=== PATIENT | male | born 1945 | race Caucasian/White ===

== ENCOUNTER 2022-03-07 07:10 | Emergency (ER) | payer OTHER ==
--- OUTSIDE RECORDS SUMMARY | 2022-03-07 07:14 | XMS REPORT | Continuity of Care Document ---
:1945 Author Organization [facility] t Address [address] [place] [address] Care Team Providers Name Role Phone [phone] Primary Care Physician Unavailable Aranza Schroeder Attending Clinician Unavailable Elvis Valderrama MD Attending Clinician Con BLANCAS, Nnamdi Attending Clinician Zakia ORTIZ, Lashae Attending Clinician Unavailable Kamran BLANCAS, Davy Berry Attending Clinician Mark Moreira MD Attending Clinician Isela Rand Attending Clinician [phone] Nadia Andujar MA Attending Clinician Unavailable Shannon De Jesus MA Attending Clinician Unavailable Salma Mojica MD Attending Clinician Ever Sepulveda MD Attending Clinician Danuta Ty MA Attending Clinician Unavailable JERE RODRIGUEZ Attending Clinician Unavailable Lou Bonner Attending Clinician Tyrone Culver Attending Clinician Any Keys MA Attending Clinician Unavailable Nadine Chaves MA Attending Clinician Unavailable Jerri Kwok MA Attending Clinician Unavailable Shannon Bradford MA Attending Clinician Unavailable Prasanth BLANCAS, Munir Gaxiolai Attending Clinician Ramone Peralta MA Attending Clinician Unavailable ISABEL MONTGOMERY Attending Clinician Unavailable DAVY ANDREW Admitting Clinician Unavailable Payers Payer Name Policy Type Policy Number Effective Date Expiration Date Venkat rojas GENERIC [id number] 2018 00:00:00 MEDICARE PART A [id number] 2010 AND B 00:00:00 MEDICARE MB [id number] 2012 [facility] NOVITAS 00:00:00 [facility] SENTINEL C1 [id number] [facility] SECURITY LIFE [facility] SENTINEL C1 [id number] [facility] SECURITY LIFE [facility] MEDICARE MB [id number] 2012 [facility] NOVITAS 00:00:00 [facility] Problems Condition Condition Condition Status Onset Resolution Last Treating Co mments Source Name Details Category Date Date Treatment Clinician Date Persistent Persistent Disease Active 2021-03 M ethodi atrial atrial 1 st fibrillati fibrillati 00:00: Ho spita on on 00 l ILD ILD Disease Active [facility] (interstit (interstit 8-03 st ial lung ial lung 00:00: Hospit a disease) disease) 00 l Dyspnea Dyspnea Disease Active [facility] 7-13 st 00:00: Hospita 00 l MARCI MARCI Disease Active Methodi (obstructi (obstructi [address] ve sleep ve sleep 00:00: Hospit a apnea) apnea) 00 l RLS RLS Disease Active [facility] (restless (restless [address] st legs legs 00:00: Hospita syndrome) syndrome) 00 l Chronic Stage 3 Problem Common kidney chronic [facility] disease kidney - [facility] stage 3 disease, St (disorder) unspecifie Lavelle kes d whether Medical stage 3a Center or 3b CKD [id number] Hypothyroi Problem Com mon dism, Spirit unspecifie - [facility] d type [facility] [id number] 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 Family History Family Member Diagnosis Comments Start Date Stop Date Source Natural father Heart disease [facility] Natural mother Heart disease [facility] Social History Social Habit Start Date Stop Date Quantity Comments Source History [facility] Alcohol Std Drinks Medica l Center History [facility] Alcohol Binge Medical [facility] History of tobacco Chews Tobacco [facility] use [facility] Alcohol intake 2022-01-27 2022-01-27 Current drinker [facility] 00:00:00 00:00:00 of alcohol Hospital (finding) Alcohol Comment 2022-01-08 2022-01-08 once a week Methodis t 00:00:00 00:00:00 Hospital History SDOH 2018-05-28 2018-05-[address] [facility] Alcohol Frequency 00:00:00 00:00:00 [facility] Tobacco use and 2018-05-27 2018-05-27 Never used [facility] kes exposure 00:00:00 00:00:00 [facility] Sex [birth year] At [birth year] [facility] 00:00:00 00:00:00 Hospital Smoking Status Start Date Stop Date Source Never smoked tobacco [facility] Medications Ordered Filled Start Stop Current Ordering Indication Dosage Frequency Signature Comments Components Source Medication Medication Date Date Medication? Clinician (SIG) Name Name GARLIC OIL 2021-03 Yes QD Take by Meth asia ORAL 2-[address] 13:45: daily. Hospita 19 l pantoprazol 2021-03 No 40mg QD Take 1 Met hodi e 03-12 tablet (40 st (PROTONIX) 00:00: 00:00 mg total) H ospita 40 MG EC 00 :00 by mouth l tablet daily for 30 days. sucralfate 2021-03 No 1g Q.25D Take 1 Met hodi (CARAFATE) 03-11 tablet (1 st 1 gram 00:00: 00:00 g total) Hospit a tablet 00 :00 by mouth 4 l (four) times a day before meals and nightly for 30 days. ascorbic 2021-03- No QD Take by Metho di acid 03-[address] (VITAMIN C 09:22: 00:00 daily. Hosp isabella ORAL) 06 :00 l rivaroxaban Yes 20mg QD Take 1 Meth saia (Xarelto) 7-21 tablet (20 st 20 mg 00:00: mg total) Hospita tablet 00 by mouth l daily. rivaroxaban 2021- No 20mg QD Take 1 Met hodi (Xarelto) 711 -18 tablet (20 st 20 mg 00:00: 00:00 mg total) Hospit a tablet 00 :00 by mouth l daily. rivaroxaban 2021- No 20mg QD Take 1 Met hodi (Xarelto) 4-01 10- tablet (20 st 20 mg 00:00: 00:00 mg total) Hospit a tablet 00 :00 by mouth l daily. rivaroxaban No 20mg QD Take 1 Met hodi (Xarelto) 22 -26 tablet (20 st 20 mg 00:00: 00:00 mg total) Hospit a tablet 00 :00 by mouth l daily for 180 days. amIODarone Yes 200mg QD Take 1 Meth asia (PACERONE) 4-[address] 200 MG 00:00: (200 mg Hospita tablet 00 total) by l mouth daily. fenofibrate Yes 160mg QD Take 160 M ethodi (LOFIBRA) 4-[address] 160 MG 00:00: mouth Hospita tablet 00 daily. l levothyroxi Yes 50ug QD Take 50 Met hodi ne 4-[address] (SYNTHROID) 00:00: mouth Hospi ta 50 mcg 00 daily. l tablet diltiazem 2021- No 1{capsu QD Take 1 Me thodi CD 3-18 01-27 le} capsule by st (CardIZEM 00:00: 00:00 mouth Hospit a CD) 180 MG 00 :00 daily. l 24 hr capsule Levothyroxi Levothyroxi Yes Aranza 1 tablet Common ne Sodium ne Sodium 4-18 [place] on an Spi rit 00:00: empty - [facility] [address] [facility] Fenofibrate Fenofibrate No 1{table QD Fenofibrat 160 MG 160 MG t_with_ e 160 MG food} Cartia XT Cartia XT No QD Cartia XT 180 MG 180 MG 180 MG Melatonin 5 Melatonin 5 No 1{table QD Melatonin MG MG t_in_th 5 MG e_eveni ng} Vitamin C Vitamin C No BID Vitamin C 500 MG 500 MG 500 MG Garlic Garlic No Garlic Levothyroxi Levothyroxi No QD Levothyrox ne Sodium ne Sodium ine Sodium 50 MCG 50 MCG 50 MCG Amiodarone Amiodarone No 1{table QD Amiodarone HCl 200 MG HCl 200 MG t} HCl 200 MG Fish Oil Fish Oil No Fish Oil Rivaroxaban Rivaroxaban No 1{table QD Rivaroxaba 10 MG 10 MG t} n 10 MG Cartia XT Cartia XT No QD Cartia XT 180 MG 180 MG 180 MG Garlic Garlic No Garlic Vitamin C Vitamin C No BID Vitamin C 500 MG 500 MG 500 MG Fenofibrate Fenofibrate No 1{table QD Fenofibrat 160 MG 160 MG t_with_ e 160 MG food} Melatonin 5 Melatonin 5 No 1{table QD Melatonin MG MG t_in_th 5 MG e_eveni ng} Levothyroxi Levothyroxi No QD Levothyrox ne Sodium ne Sodium ine Sodium 50 MCG 50 MCG 50 MCG Fish Oil Fish Oil No Fish Oil Amiodarone Amiodarone No 1{table QD Amiodarone HCl 200 MG HCl 200 MG t} HCl 200 MG Rivaroxaban Rivaroxaban No 1{table QD Rivaroxaba 10 MG 10 MG t} n 10 MG Cartia XT Cartia XT No QD Cartia XT 180 MG 180 MG 180 MG Garlic Garlic No Garlic Vitamin C Vitamin C No BID Vitamin C 500 MG 500 MG 500 MG Fenofibrate Fenofibrate No 1{table QD Fenofibrat 160 MG 160 MG t_with_ e 160 MG food} Melatonin 5 Melatonin 5 No 1{table QD Melatonin MG MG t_in_th 5 MG e_eveni ng} Levothyroxi Levothyroxi No QD Levothyrox ne Sodium ne Sodium ine Sodium 50 MCG 50 MCG 50 MCG Fish Oil Fish Oil No Fish Oil Amiodarone Amiodarone No 1{table QD Amiodarone HCl 200 MG HCl 200 MG t} HCl 200 MG Cartia XT Cartia XT No QD Cartia XT 180 MG 180 MG 180 MG Garlic Garlic No Garlic Fenofibrate Fenofibrate No 1{table QD Fenofibrat 160 MG 160 MG t_with_ e 160 MG food} Vitamin C Vitamin C No BID Vitamin C 500 MG 500 MG 500 MG Melatonin 5 Melatonin 5 No 1{table QD Melatonin MG MG t_in_th 5 MG e_eveni ng} Amiodarone Amiodarone No 1{table QD Amiodarone HCl 200 MG HCl 200 MG t} HCl 200 MG Xarelto 20 Xarelto 20 No 1{table QD Xarelto 20 MG MG t_with_ MG food} Levothyroxi Levothyroxi No QD Levothyrox ne Sodium ne Sodium ine Sodium 50 MCG 50 MCG 50 MCG Rivaroxaban Rivaroxaban No 1{table QD Rivaroxaba 10 MG 10 MG t} n 10 MG Fish Oil Fish Oil No Fish Oil Cartia XT Cartia XT No QD Cartia XT 180 MG 180 MG 180 MG Garlic Garlic No Garlic Fenofibrate Fenofibrate No 1{table QD Fenofibrat 160 MG 160 MG t_with_ e 160 MG food} Vitamin C Vitamin C No BID Vitamin C 500 MG 500 MG 500 MG Melatonin 5 Melatonin 5 No 1{table QD Melatonin MG MG t_in_th 5 MG e_eveni ng} Amiodarone Amiodarone No 1{table QD Amiodarone HCl 200 MG HCl 200 MG t} HCl 200 MG Xarelto 20 Xarelto 20 No 1{table QD Xarelto 20 MG MG t_with_ MG food} Levothyroxi Levothyroxi No QD Levothyrox ne Sodium ne Sodium ine Sodium 50 MCG 50 MCG 50 MCG Rivaroxaban Rivaroxaban No 1{table QD Rivaroxaba 10 MG 10 MG t} n 10 MG Fish Oil Fish Oil No Fish Oil Cartia XT Cartia XT No QD Cartia XT 180 MG 180 MG 180 MG Garlic Garlic No Garlic Fenofibrate Fenofibrate No 1{table QD Fenofibrat 160 MG 160 MG t_with_ e 160 MG food} Vitamin C Vitamin C No BID Vitamin C 500 MG 500 MG 500 MG Melatonin 5 Melatonin 5 No 1{table QD Melatonin MG MG t_in_th 5 MG e_eveni ng} Amiodarone Amiodarone No 1{table QD Amiodarone HCl 200 MG HCl 200 MG t} HCl 200 MG Xarelto 20 Xarelto 20 No 1{table QD Xarelto 20 MG MG t_with_ MG food} Levothyroxi Levothyroxi No QD Levothyrox ne Sodium ne Sodium ine Sodium 50 MCG 50 MCG 50 MCG Rivaroxaban Rivaroxaban No 1{table QD Rivaroxaba 10 MG 10 MG t} n 10 MG Fish Oil Fish Oil No Fish Oil Melatonin 5 Melatonin 5 No 1{table QD Melatonin MG MG t_in_th 5 MG e_eveni ng} Levothyroxi Levothyroxi No QD Levothyrox ne Sodium ne Sodium ine Sodium 50 MCG 50 MCG 50 MCG Rivaroxaban Rivaroxaban No 1{table QD Rivaroxaba 10 MG 10 MG t} n 10 MG Amiodarone Amiodarone No 1{table QD Amiodarone HCl 200 MG HCl 200 MG t} HCl 200 MG Garlic Garlic No Garlic Cartia XT Cartia XT No QD Cartia XT 180 MG 180 MG 180 MG Fish Oil Fish Oil No Fish Oil Xarelto 20 Xarelto 20 No 1{table QD Xarelto 20 MG MG t_with_ MG food} Vitamin C Vitamin C No BID Vitamin C 500 MG 500 MG 500 MG Fenofibrate Fenofibrate No 1{table QD Fenofibrat 160 MG 160 MG t_with_ e 160 MG food} Garlic Garlic No Garlic Xarelto 20 Xarelto 20 No 1{table QD Xarelto 20 MG MG t_with_ MG food} Fenofibrate Fenofibrate No 1{table QD Fenofibrat 160 MG 160 MG t_with_ e 160 MG food} Fish Oil Fish Oil No Fish Oil Levothyroxi Levothyroxi No QD Levothyrox ne Sodium ne Sodium ine Sodium 50 MCG 50 MCG 50 MCG Rivaroxaban Rivaroxaban No 1{table QD Rivaroxaba 10 MG 10 MG t} n 10 MG Vitamin C Vitamin C No BID Vitamin C 500 MG 500 MG 500 MG Melatonin 5 Melatonin 5 No 1{table QD Melatonin MG MG t_in_th 5 MG e_eveni ng} Garlic Garlic No Garlic Xarelto 20 Xarelto 20 No 1{table QD Xarelto 20 MG MG t_with_ MG food} Fenofibrate Fenofibrate No 1{table QD Fenofibrat 160 MG 160 MG t_with_ e 160 MG food} Fish Oil Fish Oil No Fish Oil Levothyroxi Levothyroxi No QD Levothyrox ne Sodium ne Sodium ine Sodium 50 MCG 50 MCG 50 MCG Rivaroxaban Rivaroxaban No 1{table QD Rivaroxaba 10 MG 10 MG t} n 10 MG Vitamin C Vitamin C No BID Vitamin C 500 MG 500 MG 500 MG Melatonin 5 Melatonin 5 No 1{table QD Melatonin MG MG t_in_th 5 MG e_eveni ng} Fenofibrate Fenofibrate No QD Fenofibrat 160 MG 160 MG e 160 MG Garlic Garlic No Garlic Levothyroxi Levothyroxi No QD Levothyrox ne Sodium ne Sodium ine Sodium 50 MCG 50 MCG 50 MCG Fish Oil Fish Oil No Fish Oil Amiodarone Amiodarone No QD Amiodarone HCl 200 MG HCl 200 MG HCl 200 MG Vitamin C Vitamin C No BID Vitamin C 500 MG 500 MG 500 MG Cartia XT Cartia XT No QD Cartia XT 180 MG 180 MG 180 MG Melatonin 5 Melatonin 5 No 1{table QD Melatonin MG MG t_in_th 5 MG e_eveni ng} Melatonin 5 Melatonin 5 No 1{table QD Melatonin MG MG t_in_th 5 MG e_eveni ng} Levothyroxi Levothyroxi No QD Levothyrox ne Sodium ne Sodium ine Sodium 50 MCG 50 MCG 50 MCG Cartia XT Cartia XT No QD Cartia XT 180 MG 180 MG 180 MG Amiodarone Amiodarone No QD Amiodarone HCl 200 MG HCl 200 MG HCl 200 MG Fish Oil Fish Oil No Fish Oil Vitamin C Vitamin C No BID Vitamin C 500 MG 500 MG 500 MG Garlic Garlic No Garlic Fenofibrate Fenofibrate No QD Fenofibrat 160 MG 160 MG e 160 MG Cartia XT Cartia XT No QD Cartia XT 180 MG 180 MG 180 MG Fish Oil Fish Oil No Fish Oil Melatonin 5 Melatonin 5 No 1{table QD Melatonin MG MG t_in_th 5 MG e_eveni ng} Levothyroxi Levothyroxi No QD Levothyrox ne Sodium ne Sodium ine Sodium 50 MCG 50 MCG 50 MCG Vitamin C Vitamin C No BID Vitamin C 500 MG 500 MG 500 MG Fenofibrate Fenofibrate No 1{table QD Fenofibrat 160 MG 160 MG t_with_ e 160 MG food} Amiodarone Amiodarone No 1{table QD Amiodarone HCl 200 MG HCl 200 MG t} HCl 200 MG Garlic Garlic No Garlic Immunizations Ordered Immunization Filled Immunization Date Status Commen ts Source Name Name FLUZONE HIGH-DOSE PF 2021-12-02 Completed [facility] 00:00:00 [facility] Moderna COVID-19 Moderna COVID-19 2020-12-31 Completed [facility] - Vaccine Vaccine 16:14:00 [facility] Moderna COVID-19 Moderna COVID-19 2020-12-31 Completed [facility] - Vaccine Vaccine 16:14:00 [facility] Moderna COVID-19 Moderna COVID-19 2020-12-31 Completed [facility] - Vaccine Vaccine 16:14:00 [facility] Moderna COVID-19 Moderna COVID-19 2020-12-31 Completed [facility] - Vaccine Vaccine 16:14:00 [facility] Moderna COVID-19 Moderna COVID-19 2020-12-31 Completed [facility] - Vaccine Vaccine 16:14:00 [facility] Moderna COVID-19 Moderna COVID-19 2020-12-31 Completed [facility] - Vaccine Vaccine 16:14:00 [facility] Moderna COVID-19 Moderna COVID-19 2020-12-31 Completed [facility] - Vaccine Vaccine 16:14:00 [facility] Moderna COVID-19 Moderna COVID-19 2020-12-31 Completed [facility] - Vaccine Vaccine 16:14:00 [facility] Moderna COVID-19 Moderna COVID-19 2020-12-31 Completed [facility] - Vaccine Vaccine 16:14:00 [facility] Moderna COVID-19 Moderna COVID-19 2020-12-31 Completed [facility] - Vaccine Vaccine 16:14:00 [facility] FLUZONE HIGH DOSE FLUZONE HIGH DOSE 2020-11-09 Completed [facility] - OVER 65 OVER 65 15:50:00 [facility] FLUZONE HIGH DOSE FLUZONE HIGH DOSE 2020-11-09 Completed [facility] - OVER 65 OVER 65 15:50:00 [facility] FLUZONE HIGH DOSE FLUZONE HIGH DOSE 2020-11-09 Completed [facility] - OVER 65 OVER 65 15:50:00 [facility] FLUZONE HIGH DOSE FLUZONE HIGH DOSE 2020-11-09 Completed [facility] - OVER 65 OVER 65 15:50:00 [facility] FLUZONE HIGH DOSE FLUZONE HIGH DOSE 2020-11-09 Completed [facility] - OVER 65 OVER 65 15:50:00 [facility] FLUZONE HIGH DOSE FLUZONE HIGH DOSE 2020-11-09 Completed [facility] - OVER 65 OVER 65 15:50:00 [facility] FLUZONE HIGH DOSE FLUZONE HIGH DOSE 2020-11-09 Completed [facility] - OVER 65 OVER 65 15:50:00 [facility] FLUZONE HIGH DOSE FLUZONE HIGH DOSE 2020-11-09 Completed [facility] - OVER 65 OVER 65 15:50:00 [facility] FLUZONE HIGH DOSE FLUZONE HIGH DOSE 2020-11-09 Completed [facility] - OVER 65 OVER 65 15:50:00 [facility] FLUZONE HIGH DOSE FLUZONE HIGH DOSE 2020-11-09 Completed [facility] - OVER 65 OVER 65 15:50:00 [facility] Pneumovax (PPSV23) Pneumovax (PPSV23) 2019-12-07 Completed [facility] - 19:51:00 [facility] Pneumovax (PPSV23) Pneumovax (PPSV23) 2019-12-07 Completed [facility] - 19:51:00 [facility] Pneumovax (PPSV23) Pneumovax (PPSV23) 2019-12-07 Completed [facility] - 19:51:00 [facility] Pneumovax (PPSV23) Pneumovax (PPSV23) 2019-12-07 Completed [facility] - 19:51:00 [facility] Pneumovax (PPSV23) Pneumovax (PPSV23) 2019-12-07 Completed [facility] - 19:51:00 [facility] Pneumovax (PPSV23) Pneumovax (PPSV23) 2019-12-07 Completed [facility] - 19:51:00 [facility] Pneumovax (PPSV23) Pneumovax (PPSV23) 2019-12-07 Completed [facility] - 19:51:00 [facility] Pneumovax (PPSV23) Pneumovax (PPSV23) 2019-12-07 Completed [facility] - 19:51:00 [facility] Pneumovax (PPSV23) Pneumovax (PPSV23) 2019-12-07 Completed [facility] - 19:51:00 [facility] Pneumovax (PPSV23) Pneumovax (PPSV23) 2019-12-07 Completed [facility] - 19:51:00 [facility] Pneumovax (PPSV23) Pneumovax (PPSV23) 2019-12-07 Completed [facility] - 19:51:00 [facility] Pneumovax (PPSV23) Pneumovax (PPSV23) 2019-12-07 Completed [facility] - 19:51:00 [facility] FLUZONE HIGH DOSE FLUZONE HIGH DOSE 2019-12-07 Completed [facility] - OVER 65 OVER 65 19:50:00 [facility] FLUZONE HIGH DOSE FLUZONE HIGH DOSE 2019-12-07 Completed [facility] - OVER 65 OVER 65 19:50:00 [facility] FLUZONE HIGH DOSE FLUZONE HIGH DOSE 2019-12-07 Completed [facility] - OVER 65 OVER 65 19:50:00 [facility] FLUZONE HIGH DOSE FLUZONE HIGH DOSE 2019-12-07 Completed [facility] - OVER 65 OVER 65 19:50:00 [facility] FLUZONE HIGH DOSE FLUZONE HIGH DOSE 2019-12-07 Completed [facility] - OVER 65 OVER 65 19:50:00 [facility] FLUZONE HIGH DOSE FLUZONE HIGH DOSE 2019-12-07 Completed [facility] - OVER 65 OVER 65 19:50:00 [facility] FLUZONE HIGH DOSE FLUZONE HIGH DOSE 2019-12-07 Completed [facility] - OVER 65 OVER 65 19:50:00 [facility] FLUZONE HIGH DOSE FLUZONE HIGH DOSE 2019-12-07 Completed [facility] - OVER 65 OVER 65 19:50:00 [facility] FLUZONE HIGH DOSE FLUZONE HIGH DOSE 2019-12-07 Completed [facility] - OVER 65 OVER 65 19:50:00 [facility] FLUZONE HIGH DOSE FLUZONE HIGH DOSE 2019-12-07 Completed [facility] - OVER 65 OVER 65 19:50:00 [facility] FLUZONE HIGH DOSE FLUZONE HIGH DOSE 2019-12-07 Completed [facility] - OVER 65 OVER 65 19:50:00 [facility] FLUZONE HIGH DOSE FLUZONE HIGH DOSE 2019-12-07 Completed [facility] - OVER 65 OVER 65 19:50:00 [facility] Tdap 2018-05-27 Completed [facility] 00:00:00 [facility] Prevnar 13 Prevnar 13 2017-11-02 Completed [facility] - -Pneumonia Vaccine -Pneumonia Vaccine 14:37:00 [facility] Prevnar 13 Prevnar 13 2017-11-02 Completed [facility] - -Pneumonia Vaccine -Pneumonia Vaccine 14:37:00 [facility] Prevnar 13 Prevnar 13 2017-11-02 Completed [facility] - -Pneumonia Vaccine -Pneumonia Vaccine 14:37:00 [facility] Prevnar 13 Prevnar 13 2017-11-02 Completed [facility] - -Pneumonia Vaccine -Pneumonia Vaccine 14:37:00 [facility] Prevnar 13 Prevnar 13 2017-11-02 Completed [facility] - -Pneumonia Vaccine -Pneumonia Vaccine 14:37:00 [facility] Prevnar 13 Prevnar 13 2017-11-02 Completed [facility] - -Pneumonia Vaccine -Pneumonia Vaccine 14:37:00 [facility] Prevnar 13 Prevnar 13 2017-11-02 Completed [facility] - -Pneumonia Vaccine -Pneumonia Vaccine 14:37:00 [facility] Prevnar 13 Prevnar 13 2017-11-02 Completed [facility] - -Pneumonia Vaccine -Pneumonia Vaccine 14:37:00 [facility] Prevnar 13 Prevnar 13 2017-11-02 Completed [facility] - -Pneumonia Vaccine -Pneumonia Vaccine 14:37:00 [facility] Prevnar 13 Prevnar 13 2017-11-02 Completed [facility] - -Pneumonia Vaccine -Pneumonia Vaccine 14:37:00 [facility] Prevnar 13 Prevnar 13 2017-11-02 Completed [facility] - -Pneumonia Vaccine -Pneumonia Vaccine 14:37:00 [facility] Prevnar 13 Prevnar 13 2017-11-02 Completed [facility] - -Pneumonia Vaccine -Pneumonia Vaccine 14:37:00 [facility] Prevnar 13 Prevnar 13 2017-11-02 Completed [facility] - -Pneumonia Vaccine -Pneumonia Vaccine 00:00:00 [facility] Vital Signs Vital Name Observation Time Observation Value Comments Source height 2022-01-14 11:00:00 69.50 [in_i] Common [facility] weight 2022-01-14 11:00:00 256.4 [lb_av] [facility] temperature 2022-01-14 11:00:00 97.3 [degF] [facility] bmi 2022-01-14 11:00:00 37.32 kg/m2 [facility] oximetry 2022-01-14 11:00:00 98 % [facility] respiratory rate 2022-01-14 11:00:00 16 /min Comm on [facility] blood pressure 2022-01-14 11:00:00 138 mm[Hg] [facility] - systolic [facility] blood pressure 2022-01-14 11:00:00 77 mm[Hg] Common [facility] diastolic [facility] height 2021-10-28 11:40:00 69.50 [in_i] [facility] weight 2021-10-28 11:40:00 264.6 [lb_av] [facility] temperature 2021-10-28 11:40:00 98.2 [degF] [facility] bmi 2021-10-28 11:40:00 38.51 kg/m2 [facility] oximetry 2021-10-28 11:40:00 97 % [facility] respiratory rate 2021-10-28 11:40:00 16 /min Comm on [facility] blood pressure 2021-10-28 11:40:00 139 mm[Hg] Common [facility] - systolic [facility] blood pressure 2021-10-28 11:40:00 68 mm[Hg] [facility] - diastolic [facility] height 2021-09-26 15:00:00 69.50 [in_i] [facility] - [facility] weight 2021-09-26 15:00:00 268.6 [lb_av] Common [facility] temperature 2021-09-26 15:00:00 97.3 [degF] [facility] - [facility] bmi 2021-09-26 15:00:00 39.09 kg/m2 [facility] oximetry 2021-09-26 15:00:00 96 % [facility] respiratory rate 2021-09-26 15:00:00 18 /min Comm on [facility] blood pressure 2021-09-26 15:00:00 135 mm[Hg] Common [facility] - systolic [facility] blood pressure 2021-09-26 15:00:00 65 mm[Hg] [facility] - diastolic [facility] height 2021-07-29 16:00:00 69.50 [in_i] [facility] weight 2021-07-29 16:00:00 267.4 [lb_av] [facility] temperature 2021-07-29 16:00:00 98.6 [degF] [facility] - [facility] bmi 2021-07-29 16:00:00 38.92 kg/m2 [facility] oximetry 2021-07-29 16:00:00 97 % [facility] respiratory rate 2021-07-29 16:00:00 18 /min Comm on [facility] blood pressure 2021-07-29 16:00:00 140 mm[Hg] [facility] - systolic [facility] blood pressure 2021-07-29 16:00:00 70 mm[Hg] [facility] - diastolic [facility] height 2021-06-26 15:20:00 69.50 [in_i] [facility] - [facility] weight 2021-06-26 15:20:00 268 [lb_av] Common [facility] temperature 2021-06-26 15:20:00 97.5 [degF] Common [facility] bmi 2021-06-26 15:20:00 39.01 kg/m2 Common [facility] oximetry 2021-06-26 15:20:00 98 % Common [facility] respiratory rate 2021-06-26 15:20:00 18 /min Comm on [facility] blood pressure 2021-06-26 15:20:00 138 mm[Hg] Common [facility] - systolic [facility] blood pressure 2021-06-26 15:20:00 82 mm[Hg] Common [facility] - diastolic [facility] height 2020-11-07 15:20:00 69.50 [in_i] Common [facility] weight 2020-11-07 15:20:00 264 [lb_av] Common [facility] temperature 2020-11-07 15:20:00 97.8 [degF] Common [facility] bmi 2020-11-07 15:20:00 38.42 kg/m2 [facility] oximetry 2020-11-07 15:20:00 98 % [facility] respiratory rate 2020-11-07 15:20:00 21 /min [facility] blood pressure 2020-11-07 15:20:00 108 mm[Hg] [facility] blood pressure 2020-11-07 15:20:00 68 mm[Hg] [facility] - diastolic [facility] WEIGHT 2019-10-06 13:13:50 118.8 kg Systolic blood 2022-02-17 19:42:00 132 mm[Hg] [facility] pressure Diastolic blood 2022-02-17 19:42:00 81 mm[Hg] Metho dist [facility] pressure Heart rate 2022-02-17 19:42:00 77 /min [facility] Body temperature 2022-02-17 19:42:00 36.28 Gayatri [facility] Body height 2022-02-17 19:42:00 177.8 cm [facility] Body weight 2022-02-17 19:42:00 116.665 kg [facility] BMI 2022-02-17 19:42:00 36.90 kg/m2 [facility] Oxygen saturation in 2022-02-17 19:42:00 98 /min [facility] Arterial blood by Pulse oximetry Respiratory rate 2022-01-09 13:10:00 18 /min [facility] Procedures Procedure Date / Time Performing Clinician Source Performed CT ABDOMEN PELVIS WO 2022-02-10 17:53:48 Elvis Valderrama [facility] CONTRAST ECG 12-LEAD 2022-01-27 17:54:29 Nnamdi Andujar [facility] spital BASIC METABOLIC PANEL 2022-01-09 12:28:00 [facility] MAGNESIUM LEVEL 2022-01-09 12:28:00 Nayely Pickens [facility] Tajdin ESTIMATED GFR 2022-01-09 12:28:00 Nnamdi Andujar [facility] spital CBC WITH PLATELET AND 2022-01-09 08:45:00 Con [facility] DIFFERENTIAL ECG 12-LEAD 2022-01-08 19:33:23 Nnamdi Andujar [facility] EP COMPLETE EP STUDY W 2022-01-08 18:56:29 Nnamdi Andujar [facility] ABLATION PULMONARY VEIN ACTIVATED CLOTTING TIME 2022-01-08 18:50:00 [facility] ACTIVATED CLOTTING TIME 2022-01-08 18:46:00 [facility] ACTIVATED CLOTTING TIME 2022-01-08 18:37:00 [facility] ACTIVATED CLOTTING TIME 2022-01-08 18:05:00 [facility] ACTIVATED CLOTTING TIME 2022-01-08 17:58:00 [facility] ACTIVATED CLOTTING TIME 2022-01-08 17:48:00 [facility] ACTIVATED CLOTTING TIME 2022-01-08 17:39:00 [facility] OH AN ELECTIVE 2022-01-08 16:44:00 [facility] ENDOTRACHEAL AIRWAY [place] ECG PRE/POST OP 2022-01-08 15:05:15 Dianelys Andujarca [facility] ABO AND RH CONFIRMATION 2022-01-08 14:25:00 [facility] BY PROTOCOL PROTHROMBIN TIME WITH INR 2022-01-03 18:47:00 [facility] TYPE AND SCREEN 2022-01-03 18:47:00 [facility] COMPREHENSIVE METABOLIC 2022-01-03 18:47:00 [facility] PANEL CBC WITH PLATELET AND 2022-01-03 18:47:00 [facility] DIFFERENTIAL ESTIMATED GFR 2022-01-03 18:47:00 [facility] 12-LEAD 2021-12-06 13:34:46 AdrSalma nur spital ECG 12-LEAD 2021-12-02 14:02:29 [facility] 12-LEAD 2021-11-06 15:40:06 [facility] X[facility] LUMBAR SPINE COMPLETE 2021-10-11 18:21:45 Tyrone Canchola [facility] W BENDING CT CHEST WO CONTRAST 2021-09-25 11:52:39 [facility] XR CHEST 2 VW 2021-09-18 16:13:18 [facility] US CAROTID DUPLEX 2021-08-26 19:56:50 Prasanth Munir [facility] BILATERAL [facility] ANGIOGRAM ABDOMINAL 2021-08-26 19:36:02 Lavelle [facility] AORTA AND BILATERAL ILIOFEMORAL RUNOFF W WO CONTRAST POC CREATININE 2021-08-26 19:10:00 Lavelle [facility] spital ESTIMATED GFR 2021-08-26 19:10:00 Elvis Valderrama [facility] US ANKLE BRACHIAL INDEX 2021-07-24 20:00:00 [facility] US DUPLEX ARTERIAL LOWER 2021-07-24 19:18:07 [facility] EXTREMITY BILATERAL [facility] CV STRESS TEST NUCLEAR 2021-07-24 16:07:22 [facility] CARDIO Sasrutha Estela NM MYOCARDIAL PERFUSION 2021-07-24 16:07:22 [facility] Sasbrian Palmer TTE COMPLETE, WO 2021-07-17 14:21:53 WickramNathalia gutierrez H ospital CONTRAST, W DOPPLER Isabel Palmer ([id number]) ECG 12-LEAD 2021-06-28 13:40:51 WickramSteve gutierrezist Ho spital Sasrutha Estela Plan of Care Planned Activity Planned Date Details Comments Source Future Scheduled 2022-02-24 Hepatitis C [facility] Test 16:50:38 screening (procedure) [code = 909581564] Future Scheduled 2022-02-24 SHINGLES VACCINES [facility] Test 16:50:38 (1 of 2) [code = SHINGLES VACCINES (1 of 2)] Future Scheduled 2022-02-24 COVID-19 VACCINE (5 [facility] Test 16:50:38 - Booster for Moderna series) [code = COVID-19 VACCINE (5 - Booster for Moderna series)] Encounters Start End Encounter Admission Attending Care Care Encounter Source Date/Time Date/Time Type Type Clinicians Facility Department ID 2021-12-26 Outpatient [place], [facility] [id number] Common 15:15:01 Aranza [facility] 2021-09-24 Outpatient Elda [facility] [id number] Common 10:22:01 Aranza [facility] 2021-04-11 Outpatient VELIA GUNN [id number] 18:08:28 Anderso n 2021-04-11 Outpatient VELIA GUNN [id number] 18:08:28 Anders n 2021-04-03 Outpatient [place], STLMLC STLMLC [id number] Common 12:34:10 Aranza [id number] [facility] 2021-04-03 Outpatient [place], STMARCKLC STLMLC [id number] Common 11:08:54 Aranza [id number] [facility] 2021-04-03 Outpatient [place], STLMLC STLMLC [id number] Common 11:06:18 Aranza [id number] [facility] 2022-02-20 2022-02-20 (TEL) STLMLC STLC [id number] Co mmon 00:00:00 00:00:00 [facility] 2022-02-17 2022-02-17 Office Elvis Valderrama 1.2.840.1 [id number] Methodi 13:30:00 15:55:[address] 3.430.2.7 Hospit a .3.757378 l .8 2022-02-17 2022-02-17 Travel 1.2.840.1 1.2.516.714 9382 909057 Methodi 00:00:00 00:00:[address] 3.430.2.7 0.2.7.3.698 Ho spita .3.366302 084.8 l .8 2022-02-17 2022-02-17 Outpatient ELVIS VALDERRAMA [facility] [id number] [place] 00:00:00 00:00:[address] 2022-02-10 2022-02-10 [facility] Elvis Valderrama 1.2.840.1 [id number] 2100 [id number] Methodi 08:11:01 23:59:[address] 3.430.2.7 Hospit a .3.213580 l .8 2022-02-10 2022-02-10 Outpatient ELVIS VALDERRAMA [facility] [id number] [place] 00:00:00 00:00:[address] 2022-02-10 2022-02-10 Travel 1.2.840.1 1.2.876.944 9544 171429 Methodi 00:00:00 00:00:[address] 3.430.2.7 0.2.7.3.698 Ho spita .3.036173 084.8 l .8 2022-01-27 2022-01-27 Office Andujar, 1.2.840.1 [id number] 7939 Methodi 11:10:00 12:05:45 Visit Apoor 49476.1.[address] 3.430.2.7 Hospit a .3.139972 l .8 2022-01-27 2022-01-27 [facility] [id number] 532 [place] 00:00:00 00:00:[address] APOOR [address] 2022-01-27 2022-01-27 Travel 1.2.840.1 1.2.331.385 8494 211684 Methodi 00:00:00 00:00:[address] 3.430.2.7 0.2.7.3.698 Ho spita .3.005246 084.8 l .8 2022-01-14 2022-01-14 OFFICE STLMLC STLMLC [id number] Co mmon 00:00:00 00:00:00 VISIT EST Spir it PT LEVEL 3 - [facility] 2022-01-14 2022-01-14 Telephone Zakia, 1.2.840.1 [id number] Methodi 00:00:00 00:00:[address] 3.430.2.7 Hospit a .3.628828 l .8 2022-01-08 2022-01-09 Hospital Nnamdi Andujar 1.2.840.1 [id number] Methodi 08:49:00 10:12:00 Encounter Davy Andrew 55023.1.[address] 3.430.2.7 Hospit a .3.658888 l .8 2022-01-08 2022-01-09 Outpatient [facility] [id number] [place] 00:00:00 00:00:[address] DAVY [address] 2022-01-08 2022-01-08 Anesthesia Mark Moreira 1.2.840.1 [id number] Methodi 11:26:00 14:27:00 Event Isela Rand 25671.1.[address] 3.430.2.7 Hospit a .3.088613 l .8 2022-01-08 2022-01-08 Surgery Andujar, 1.2.840.1 [id number] 0040 Methodi 10:55:00 13:30:[address] 3.430.2.7 Hospit a .3.416447 l .8 2022-01-08 2022-01-08 Travel 1.2.840.1 1.2.421.427 2178 397519 Methodi 00:00:00 00:00:[address] 3.430.2.7 0.2.7.3.698 Ho spita .3.839813 084.8 l .8 2022-01-03 2022-01-03 Outpatient [facility] [id number] 443 [place] 00:00:00 00:00:00 APOOR [address] 2022-01-02 2022-01-02 Travel 1.2.840.1 1.2.974.536 8695 297986 Methodi 00:00:00 00:00:[address] 3.430.2.7 0.2.7.3.698 Ho spita .3.102144 084.8 l .8 2022-01-01 2022-01-01 Telephone Andujar, 1.2.840.1 [id number] 2099 [id number] Methodi 00:00:00 00:00:[address] 3.430.2.7 Hospit a .3.521468 l .8 2022-01-01 2022-01-01 Travel 1.2.840.1 1.2.147.490 7573 905795 Methodi 00:00:00 00:00:[address] 3.430.2.7 0.2.7.3.698 Ho spita .3.994921 084.8 l .8 2021-12-12 2021-12-12 Orders De Jesus, 1.2.840.1 [id number] 2013 Methodi 00:00:00 00:00:00 Only Shannon 63811.1.[address] 3.430.2.7 Hospit a .3.338762 l .8 2021-12-06 2021-12-06 Office Adryanethue, 1.2.840.1 [id number] 06153 10677 Methodi 08:30:00 09:12:54 Visit Salma 73810.1.[address] 3.430.2.7 Hospit a .3.251312 l .8 2021-12-06 2021-12-06 Outpatient ADRUE, [facility] [id number] [place] 00:00:00 00:00:00 SALMA [address] 2021-12-06 2021-12-06 Travel 1.2.840.1 1.2.516.882 2843 864946 Methodi 00:00:00 00:00:[address] 3.430.2.7 0.2.7.3.698 Ho spita .3.108241 084.8 l .8 2021-12-02 2021-12-02 Clinical Sepulveda, 1.2.840.1 [id number] 81287 77107 Methodi 13:15:00 13:48:18 Support Ever Melgar 33833.1.[address] 3.430.2.7 Hospit a .3.892679 l .8 2021-12-02 2021-12-02 Office Andujar, 1.2.840.1 [id number] 0715 Methodi 09:10:00 09:50:39 Visit Nnamdi 57339.1.[address] 3.430.2.7 Hospit a .3.821562 l .8 2021-12-02 2021-12-02 Outpatient ANDUJAR, [facility] [id number] 452 [place] 00:00:00 00:00:00 APOOR [address] 2021-12-02 2021-12-02 Outpatient [facility] [id number] 195 [place] 00:00:00 00:00:[address] 2021-12-02 2021-12-02 Orders Zakia, 1.2.840.1 [id number] 21001 90817 Methodi 00:00:00 00:00:00 Only Lashae 42065.1.[address] 3.430.2.7 Hospit a .3.553003 l .8 2021-12-02 2021-12-02 Travel 1.2.840.1 1.2.648.756 5832 217236 Methodi 00:00:00 00:00:[address] 3.430.2.7 0.2.7.3.698 Ho spita .3.738628 084.8 l .8 2021-11-14 2021-11-14 Orders Karson, 1.2.840.1 [id number] 2099007 Methodi 00:00:00 00:00:00 Only Danuta 21934.1.[address] 3.430.2.7 Hospit a .3.923902 l .8 2021-11-07 2021-11-07 Orders Karson, 1.2.840.1 [id number] Methodi 00:00:00 00:00:00 Only Danuta 23212.1.[address] 3.430.2.7 Hospit a .3.064055 l .8 2021-11-07 2021-11-07 Orders Karson, 1.2.840.1 2099569 Methodi 00:00:00 00:00:00 Only Danuta 37867.1.[address] 3.430.2.7 Hospit a .3.616326 l .8 2021-11-07 2021-11-07 Orders Karson, 1.2.840.1 [id number] 2099 008084 Methodi 00:00:00 00:00:00 Only Danuta 48618.1.[address] 3.430.2.7 Hospit a .3.492589 l .8 2021-11-06 2021-11-06 Office Marydawson, 1.2.840.1 [id number] 55853 99410 Methodi 10:30:00 11:31:37 Visit Salma 38554.1.[address] 3.430.2.7 Hospit a .3.065879 l .8 2021-11-06 2021-11-06 Outpatient ADRUE, [facility] [id number] [place] 00:00:00 00:00:00 SALMA [address] 2021-11-06 2021-11-06 Travel 1.2.840.1 1.2.436.103 3899 032809 Methodi 00:00:00 00:00:[address] 3.430.2.7 0.2.7.3.698 Ho spita .3.718030 084.8 l .8 2021-11-05 2021-11-05 Orders Karson, 1.2.840.1 [id number] 2099 748777 Methodi 00:00:00 00:00:00 Only Danuta 95992.1.[address] 3.430.2.7 Hospit a .3.878651 l .8 2021-10-28 2021-10-28 OFFICE STLMLC STLMLC [id number] Co mmon 00:00:00 00:00:00 VISIT EST Spir it PT LEVEL 3 - [facility] 2021-10-25 2021-10-25 Outpatient MAHIN RODRIGUEZ MDA MDA [id number] 08:12:07 09:20:22 JERE davidson 2021-10-17 2021-10-17 (TEL) STLMLC STLMLC [id number] Co mmon 00:00:00 00:00:00 Spirit - [facility] 2021-10-11 2021-10-11 Office Lou Hall 1.2.840.1 [id number] Methodi 13:10:00 14:00:34 Visit Tyrone Canchola 56726.1.[address] 3.430.2.7 Hospit a .3.238406 l .8 2021-10-11 2021-10-11 Outpatient JOEL [facility] [id number] 564 [place] 00:00:00 00:00:00 LOU [address] 2021-10-11 2021-10-11 Outpatient [facility] [id number] 717 [place] 00:00:00 00:00:[address] 2021-10-11 2021-10-11 Travel 1.2.840.1 1.2.529.583 9127 729646 Methodi 00:00:00 00:00:[address] 3.430.2.7 0.2.7.3.698 Ho spita .3.284996 084.8 l .8 2021-10-09 2021-10-09 Office Cristobal 1.2.840.1 [id number] 6581 Methodi 10:15:00 10:27:01 Visit Ever Melgar 69142.1.[address] 3.430.2.7 Hospit a .3.793831 l .8 2021-10-09 2021-10-09 Outpatient CRISTOBAL [facility] [id number] 098 [place] 00:00:00 00:00:[address] 2021-10-09 2021-10-09 Travel 1.2.840.1 1.2.933.417 1430 021271 Methodi 00:00:00 00:00:[address] 3.430.2.7 0.2.7.3.698 Ho spita .3.880079 084.8 l .8 2021-09-30 2021-09-30 (TEL) STLMLC STLMLC [id number] Co mmon 00:00:00 00:00:00 [facility] 2021-09-26 2021-09-26 OFFICE STLMLC STLMLC [id number] Co mmon 00:00:00 00:00:00 VISIT Michael ESTAB PT - CHI LEVEL 4 [facility] 2021-09-25 2021-09-25 [facility], 1.2.840.1 [id number] 57457 25585 Methodi 06:19:28 23:59:00 Encounter Ever Melgar 61038.1.[address] 3.430.2.7 Hospit a .3.461639 l .8 2021-09-25 2021-09-25 Outpatient [facility] [id number] 162 [place] 00:00:00 00:00:[address] 2021-09-25 2021-09-25 Travel 1.2.840.1 1.2.584.414 8798 946022 Methodi 00:00:00 00:00:[address] 3.430.2.7 0.2.7.3.698 Ho spita .3.520063 084.8 l .8 2021-09-18 2021-09-18 [facility], 1.2.840.1 [id number] 05413 Methodi 10:38:44 23:59:00 Encounter Ever Melgar 68467.1.[address] 3.430.2.7 Hospit a .3.742290 l .8 2021-09-18 2021-09-18 Office [facility], 1.2.840.1 [id number] 1728 Methodi 09:15:00 09:40:21 Visit Ever Melgar 27423.1.[address] 3.430.2.7 Hospit a .3.029911 l .8 2021-09-18 2021-09-18 Outpatient [facility] [id number] 164 [place] 00:00:00 00:00:[address] EVER [address] 2021-09-18 2021-09-18 Outpatient [facility] [id number] 107 [place] 00:00:00 00:00:[address] 2021-09-18 2021-09-18 Malcolm Keys, 1.2.840.1 [id number] 4608 Methodi 00:00:00 00:00:00 Only Any 16419.1.[address] 3.430.2.7 Hospit a .3.673527 l .8 2021-09-18 2021-09-18 Travel 1.2.840.1 1.2.146.064 6834 359186 Methodi 00:00:00 00:00:[address] 3.430.2.7 0.2.7.3.698 Ho spita .3.008967 084.8 l .8 2021-09-16 2021-09-16 Travel 1.2.840.1 1.2.192.656 8777 762075 Methodi 00:00:00 00:00:[address] 3.430.2.7 0.2.7.3.698 Ho spita .3.035704 084.8 l .8 2021-09-16 2021-09-16 Telephone Chaves, 1.2.840.1 [id number] 2100 951371 Methodi 00:00:00 00:00:[address] 3.430.2.7 Hospit a .3.108303 l .8 2021-09-16 2021-09-16 Jerri Azul 1.2.840.1 [id number] 193 [id number] Methodi 00:00:00 00:00:[address] 3.430.2.7 Hospit a .3.775408 l .8 2021-09-11 2021-09-11 Telephone Suzette, 1.2.840.1 [id number] 2 [id number] Methodi 00:00:00 00:00:[address] 3.430.2.7 Hospit a .3.702252 l .8 2021-09-02 2021-09-02 Office Elvis Valderrama 1.2.840.1 [id number] Methodi 13:00:00 14:27:[address] 3.430.2.7 Hospit a .3.591032 l .8 2021-09-02 2021-09-02 Outpatient ELVIS VALDERRAMA [facility] [id number] [place] 00:00:00 00:00:[address] 2021-09-02 2021-09-02 Travel 1.2.840.1 1.2.165.102 6424 024333 Methodi 00:00:00 00:00:[address] 3.430.2.7 0.2.7.3.698 Ho spita .3.673814 084.8 l .8 2021-08-28 2021-08-28 Telephone Chaves, 1.2.840.1 [id number] 2099 780329 Methodi 00:00:00 00:00:[address] 3.430.2.7 Hospit a .3.447865 l .8 2021-08-26 2021-08-26 Hospital Rader, 1.2.840.1 [id number] 89109 Methodi 13:54:39 23:59:00 Encounter Munir 63506.1.[address] [facility] 3.430.2.7 Hosp isabella .3.770953 l .8 2021-08-26 2021-08-26 [facility] Lavelle Elvis 1.2.840.1 [id number] 2099 702459 Methodi 13:54:23 23:59:[address] 3.430.2.7 Hospit a .3.383934 l .8 2021-08-26 2021-08-26 Outpatient LAVELLEBEKAHY [facility] [id number] 5408 [place] 00:00:00 00:00:[address] 2021-08-26 2021-08-26 Outpatient PRASANTH [facility] [id number] 869 [place] 00:00:00 00:00:[address] MUNIR [address] 2021-08-26 2021-08-26 Travel 1.2.840.1 1.2.704.488 5303 950612 Methodi 00:00:00 00:00:[address] 3.430.2.7 0.2.7.3.698 Ho spita .3.791114 084.8 l .8 2021-08-15 2021-08-15 Travel 1.2.840.1 1.2.787.707 4256 090798 Methodi 00:00:00 00:00:[address] 3.430.2.7 0.2.7.3.698 Ho spita .3.144790 084.8 l .8 2021-07-30 2021-07-30 Orders Kathryn, 1.2.840.1 [id number] 51702 Methodi 00:00:00 00:00:00 Only Crysandria 25914.1.1 810 s t 3.430.2.7 Hospit a .3.668839 l .8 2021-07-29 2021-07-29 SUB ANNUAL STLC STLC [id number] Common 00:00:00 00:00:00 MCR Spirit WELLNESS - [facility] VISIT [facility] 2021-07-29 2021-07-29 [facility]TEL[facility] [id number] Co mmon 00:00:00 00:00:00 Spirit - [facility] 2021-07-29 2021-07-29 Edie Peralta 1.2.840.1 [id number] Methodi 00:00:00 00:00:00 Crysandria 74282.1.1 747 s t 3.430.2.7 Hospit a .3.662023 l .8 2021-07-29 2021-07-29 Orders Kathryn, 1.2.840.1 [id number] 89047 45191 Methodi 00:00:00 00:00:00 Only Crysandria 30052.1.1 934 s t 3.430.2.7 Hospit a .3.412246 l .8 2021-07-26 2021-07-26 Travel 1.2.840.1 1.2.966.946 3902 083693 Methodi 00:00:00 00:00:[address] 3.430.2.7 0.2.7.3.698 Ho spita .3.242775 084.8 l .8 2021-07-26 2021-07-26 Telephone SundarJerri 1.2.840.1 [id number] 2 [id number] Methodi 00:00:00 00:00:[address] 3.430.2.7 Hospit a .3.533771 l .8 2021-07-24 2021-07-24 Office Prasanth, 1.2.840.1 [id number] 113304 7253 Methodi 15:15:00 16:02:34 Visit Munir 42546.1.[address] [facility] 3.430.2.7 Hosp isabella .3.802483 l .8 2021-07-24 2021-07-24 Outpatient PRASANTH, [facility] [id number] 081 [place] 00:00:00 00:00:00 MUNIR 724 Method i 2021-07-24 2021-07-24 Outpatient PRASANTH [facility] [id number] 081 [place] 00:00:00 00:00:00 MUNIR 897 Method i 2021-07-24 2021-07-24 Outpatient WICKRAMASIN [facility] 554 [id number] [place] 00:00:00 00:00:00 GHE, 123 Method i SASRUTHA 2021-07-24 2021-07-24 Outpatient PRASANTH [facility] [id number] 081 [place] 00:00:00 00:00:00 MUNIR 440 Method i 2021-07-24 2021-07-24 Travel 1.2.840.1 1.2.733.470 0892 916225 Methodi 00:00:00 00:00:[address] 3.430.2.7 0.2.7.3.698 Ho spita .3.311645 084.8 l .8 2021-07-23 2021-07-23 Telephone Jerri Kwok 1.2.840.1 [id number] 2 [id number] Methodi 00:00:00 00:00:[address] 3.430.2.7 Hospit a .3.281185 l .8 2021-07-17 2021-07-17 Outpatient WICKRAMASIN [facility] 855 [id number] [place] 00:00:00 00:00:00 GHE, [address] 2021-07-17 2021-07-17 Travel 1.2.840.1 1.2.675.760 0055 607715 Methodi 00:00:00 00:00:[address] 3.430.2.7 0.2.7.3.698 Ho spita .3.162131 084.8 l .8 2021-07-02 2021-07-02 Yuliet Chaves, 1.2.840.1 [id number] 3903 Methodi 00:00:00 00:00:[address] 3.430.2.7 Hospit a .3.412440 l .8 2021-06-28 2021-06-28 Office Bubba 1.2.840.1 [id number] Methodi 09:15:00 10:23:37 Visit racquel, 29983.1.[address] Yuseftha 3.430.2.7 Hospi ta Estela .3.442192 l .8 2021-06-28 2021-06-28 Outpatient [facility] [id number] [place] 00:00:00 00:00:00 GHE, [address] 2021-06-28 2021-06-28 Travel 1.2.840.1 1.2.159.963 5215 742911 Methodi 00:00:00 00:00:[address] 3.430.2.7 0.2.7.3.698 spita .3.686998 084.8 l .8 2021-06-26 2021-06-26 OFFICE STLMLC STLMLC [id number] [place] 00:00:00 00:00:00 VISIT [facility] PT - CHI LEVEL 4 [facility] 2021-06-19 2021-06-19 Orders Kathryn, 1.2.840.1 [id number] 36251 Methodi 00:00:00 00:00:00 Only Ramone 99467.1.1 090 s t 3.430.2.7 Hospit a .3.854845 l .8 2021-05-22 2021-05-22 (TEL) STLMLC STLMLC [id number] Co m[place] 00:00:00 00:00:00 [facility] 2020-11-07 2020-11-07 OFFICE STLMLC STLMLC [id number] [place] m[place] 00:00:00 00:00:00 VISIT [facility] PT - CHI LEVEL 4 [facility] 2020-11-02 2020-11-02 (TEL) STLMLC STLMLC [id number] Co mmon 00:00:00 00:00:00 [facility] 2020-10-25 2020-10-25 Outpatient MAHIN RODRIGUEZ MDA MDA [id number] 09:07:14 09:32:19 JERE davidson 2020-07-12 2020-07-12 Outpatient STLMLC STLMLC [id number] Common 00:00:00 00:00:00 [facility] 2020-07-05 2020-07-05 Outpatient STLMLC STLMLC [id number] Common 00:00:00 00:00:00 [facility] 2020-07-04 2020-07-04 Outpatient STLMLC STLMLC [id number] Common 00:00:00 00:00:00 [facility] 2020-07-03 2020-07-03 Outpatient STLMLC STLMLC [id number] Common 00:00:00 00:00:00 [facility] 2020-07-02 2020-07-02 Outpatient STLMLC STLMLC [id number] Common 00:00:00 00:00:00 [facility] 2020-05-03 2020-05-03 Outpatient STLMLC STLMLC [id number] Common 00:00:00 00:00:00 [facility] 2020-04-11 2020-04-11 Outpatient STLMLC STLMLC [id number] Common 00:00:00 00:00:00 [facility] 2020-03-05 2020-03-05 Outpatient STLMLC STLMLC [id number] Common 00:00:00 00:00:00 [facility] 2020-03-05 2020-03-05 Outpatient STLMLC STLMLC [id number] Common 00:00:00 00:00:00 [facility] 2020-02-20 2020-02-20 Outpatient STLMLC STLMLC [id number] Common 00:00:00 00:00:00 [facility] 2020-02-20 2020-02-20 Outpatient STLMLC STLMLC [id number] Common 00:00:00 00:00:00 [facility] 2019-12-12 2019-12-12 Outpatient STLMLC STLMLC [id number] Common 00:00:00 00:00:00 [facility] 2019-11-11 2019-11-11 Out[facility] [id number] Common 17:04:00 17:04:00 [facility] [address] [facility] 2019-11-02 2019-11-02 Out[facility] [id number] Common 10:20:00 10:20:00 [facility] [address] [facility] 2019-10-06 2019-10-06 Outpatient MAHIN RODRIGUEZ MDA MDA [id number] 12:59:44 14:19:10 JERE davidson 2019-04-27 2019-04-27 [facility] [id number] Common 15:00:00 15:00:00 [facility] [address] [facility] 2019-04-08 2019-04-08 [facility] [id number] Common 21:20:00 21:20:[address] [facility] 2018-10-27 2018-10-27 [facility] [id number] Common 14:40:00 14:40:[address] [facility] 2018-08-19 2018-08-19 Out[facility] [id number] Common 15:41:00 15:41:[address] [facility] 2018-06-24 2018-06-24 [facility] [id number] Common 11:44:00 11:44:[address] [facility] 2018-06-24 2018-06-24 [facility] [id number] Common 11:31:00 11:31:[address] [facility] 2017-11-12 2017-11-12 Out[facility] [id number] Common 11:01:00 11:01:[address] [facility] 2017-11-11 2017-11-11 [facility] [id number] Common 10:20:00 10:20:[address] [facility] 2017-11-10 2017-11-10 [facility] [id number] Common 10:45:00 10:45:[address] [facility] 2017-11-02 2017-11-02 [facility] 15 [id number] Common 09:45:00 09:45:[address] [facility] Results Test Description Test Time Test Comments Results Result Comments Source ECG 12 lead 2022-01-29 03:26:12 Test Item Value Reference Range Interpretation Comme nts Ventricular rate (test code = 253) Atrial rate (test code = 255) OH interval (test code = 266) QRSD interval (test code = 260) QT interval (test code = 264) QTC interval (test code = 265) P axis 1 (test code = 267) QRS axis 1 (test code = 268) T wave axis (test code = 270) EKG impression (test code = 273) Normal sinus [facility] [id number] 18:21:00 Test Item Value Reference Range Interpretation Comments Activated clotting time See_Comment H Oper ator Name: (test code = 5298) Keyona FergusonJewell ID : [id number] [Autom ated message] The sy stem which generated this result transmit alfredo reference range : 96 - 152 sec. The reference range was not used to int erpret this result as normal/abnormal . Lab Interpretation (test Abnormal code = 46713-3) [facility] Pre/Post [id number] 20:36:40 Test Item Value Reference Range Interpretation Comments Ventricular rate (test code = 253) Atrial rate (test code = 255) QRSD interval (test code = 260) QT interval (test code = 264) QTC interval (test code = 265) QRS axis 1 (test code = 268) T wave axis (test code = 270) EKG impression (test Atrial flutter with code = 273) variable AV block-Abnormal ECG-In automated comparison with ECG of 06-DEC-2021 08:34,-ST less depressed in Inferior leads-ST no longer depressed in Lateral leads-Nonspecific T wave abnormality has replaced inverted T waves in Inferior leads-T wave inversion no longer evident in Anterolateral leads-QT has shortened-Electronicall y Signed By Karin Hartley MD ([id number]) on 01/08/2022 3:36:36 PM [facility] [id number] 19:13:00 Test Item Value Reference Range Interpretation Comments POC creatinine (test 1.4 mg/dl 0.7-1.2 H Operato r Name: Lyons code = 43360-5) Jia ce ID: [id number] Lab Interpretation Abnormal (test code = 87345-9) [facility], [facility] 2 VIEWS, [id number] 21:31:00Reason for exam:->FB?FINAL REPORT CLINICAL HISTORY: Catfish bite, concern for foreign body COMPARISON: None. FINDINGS: 2 views of the left ring finger are submitted. There is no acute fracture, malalignment, destructive bony lesion or radiopaque foreign body. Signed: Leatha Perezort Verified Sebastien e/Time: 05/27/2018 21:31:50 Reading Location: [address] Reading Room
--- NOTE | 2022-03-07 08:16 | RAD REPORT ---
EXAM DESCRIPTION: CT - C Spine Wo Con - 03/07/2022 7:59 am CLINICAL HISTORY: Neck pain, right upper extremity radiculopathy COMPARISON: None. TECHNIQUE: Axial 2 mm thick images of the cervical spine were obtained with sagittal and coronal rec onstruction images generated and reviewed. All CT scans are performed using dose optimization technique as appropriate and may include automated exposure control or mA/KV adjustment according to patient size. FINDINGS: Cervical bodies are normal in height. There is reversal of the usual cervical lordosis wit h the apex at C4. Disc space narrowing is present from C3-4 through C6-7. There is very slight anteri or subluxation of C2 due to facet degenerative change. No fracture or pathologic bone process. Multil evel facet joint endplate spurring and uncovertebral joint hypertrophy. Advanced facet joint hypertro phy is seen. Moderate bilateral foraminal stenosis at C3-4 with moderate right-side more mild left-si ded foraminal stenosis at C4-5. Similar moderate right-sided and mild left-sided bony foraminal steno sis at C5-6 moderate severity bilateral foraminal stenosis C6-7. Central spinal stenosis to 9 mm present at C3-4 C4-5 with borderline stenosis. C5-6 is stenotic at 8- 9 mm midline. No paraspinal mass or hematoma. Central canal detail is inherently limited on CT imaging. IMPRESSION: No fracture or acute cervical spine finding. Degenerative changes detailed above result in multilevel foraminal stenosis with any right-sided radi culopathy. Patient has multiple levels of borderline to mild central spinal stenosis. Central canal detail is li mited. Spinal stenosis can be contributing factor to radiculopathy as well.
--- NOTE | 2022-03-07 08:58 | RAD REPORT ---
EXAM DESCRIPTION: RAD - Chest Single View - 03/07/2022 8:31 am CLINICAL HISTORY: COUGH, neck pain, right shoulder pain COMPARISON: Two view chest 10/28/2021 TECHNIQUE: AP portable chest image was obtained 03/07/2022 8:31 am . FINDINGS: Lung volumes are low accentuating the interstitial pattern. Stranding in each lung base is not substantially different and is probably atelectasis. Minimal left base infiltrate cannot be enti rely excluded and can be correlated with clinical findings. Heart and vasculature are normal. No measurable pleural effusion and no pneumothorax. No acute bony abnormality seen. No acute aortic findings suspected. IMPRESSION: Low lung volume examination showing increased left base interstitial markings. This is p robably atelectasis though small left base infiltrate cannot be excluded. This needs correlation with clinical findings.
--- NOTE | 2022-03-07 09:57 | EDPHYS ---
Physician Documentation [facility] Name: Ke Edwards Jr Age: 77 yrs Sex: Male : 1945 Arrival Date: 03/07/2022 Time: 07:13 Bed 2 Private MD: ED Physician Donnell Toussaint HPI: 03/07 08:46 This 77 yrs old Male presents to ER via Ambulatory with complaints of neck/shoulder rn pain. 08:46 The patient or guardian complains of pain, that is acute. right shoulder and right rn trapezius. Context: The problem was sustained at an unknown site, resulted from an unknown reason, The patient reports no decreased range of motion. The patient reports no obvious deformity. Onset: The symptoms/episode began/occurred last night. Modifying factors: the symptoms are alleviated by remaining still, The symptoms are aggravated by movement. Associated signs and symptoms: Pertinent positives: neck pain, Numbness in right arm tingling, Pertinent negatives: abdominal pain, chest pain, diaphoresis. Severity of symptoms: At their worst the symptoms were moderate, in the emergency department the symptoms have improved. The patient has not experienced similar symptoms in the past. The patient has not recently seen a physician. Historical: - Allergies: 07:37 No Known Allergies; iw - Home Meds: 07:37 Amiodarone Oral [Active]; Xarelto oral [Active]; fenofibrate oral [Active]; iw levothyroxine oral [Active]; - PMHx: 07:37 Atrial fibrillation; Hypothyroidism; iw - PSHx: 07:37 cardiac ablation; rotator cuff right; Tonsillectomy; iw - Immunization history:: Client reports receiving the 2nd dose of the Covid vaccine. - Social history:: Smoking status: Patient denies any tobacco usage or history of. - Family history:: not pertinent. - Hospitalizations: : No recent hospitalization is reported. ROS: 08:46 Constitutional: Negative for fever, chills, and weight loss, Eyes: Negative for injury, rn pain, redness, and discharge, Neck: + right neck pain Cardiovascular: Negative for chest pain, palpitations, and edema, Respiratory: Negative for shortness of breath, cough, wheezing, and pleuritic chest pain, Abdomen/GI: Negative for abdominal pain, nausea, vomiting, diarrhea, and constipation, Back: Negative for injury and pain, MS/Extremity: Negative for injury and deformity, Skin: Negative for injury, rash, and discoloration, Neuro: + tingling to right arm, negative for weakness Exam: 08:46 Constitutional: This is a well developed, well nourished patient who is awake, alert, rn and in no acute distress. Head/Face: Normocephalic, atraumatic. Eyes: Periorbital areas with no swelling, redness, or edema. Neck: Trachea midline, no masses palpated, and no cervical lymphadenopathy. Supple, full range of motion without nuchal rigidity, or vertebral point tenderness. No Meningismus. Cardiovascular: Irregular rhythm, regular rate Respiratory: No increased work of breathing, no retractions or nasal flaring. Abdomen/GI: Soft, non-tender Back: No spinal tenderness. No costovertebral tenderness. Full range of motion. Skin: Warm, dry with normal turgor. Normal color with no rashes, no lesions, and no evidence of cellulitis. MS/ Extremity: Pulses equal, no cyanosis. Neurovascular intact. Full, normal range of motion. Equal circumference. Neuro: Awake and alert, GCS 15, oriented to person, place, time, and situation. Cranial nerves II-XII grossly intact. Motor strength 5/5 in all extremities. Tingling RUE. Cerebellar exam normal. 09:55 ECG was reviewed by the Attending Physician. rn Vital Signs: 07:35 BP 171 / 70; Pulse 75; Resp 16; Temp 98.3; Pulse Ox 99% on R/A; Weight 117.93 kg; iw Height 5 ft. 10 in. (177.80 cm); 09:15 BP 162 / 86; Pulse 71; Resp 16; Pulse Ox 98% on R/A; db 09:45 BP 175 / 74; Pulse 72; Resp 16; Pulse Ox 97% on R/A; db 07:35 Body Mass Index 37.31 (117.93 kg, 177.80 cm) iw MDM: 07:14 Patient medically screened. rn 09:55 Differential diagnosis: DJD, tendonitis, radiculopathy. Data reviewed: vital signs, rn nurses notes, EKG, radiologic studies, CT scan, and as a result, I will discharge patient. Counseling: I had a detailed discussion with the patient and/or guardian regarding: the historical points, exam findings, and any diagnostic results supporting the discharge/admit diagnosis, radiology results, the need for outpatient follow up, to return to the emergency department if symptoms worsen or persist or if there are any questions or concerns that arise at home. Special discussion: I discussed with the patient/guardian in detail that at this point there is no indication for admission to the hospital. It is understood, however, that if the symptoms persist or worsen the patient needs to return immediately for re-evaluation. 03/07 07:47 Order name: CT C Spine; Complete Time: 08:49 rn 03/07 07:47 Order name: XRAY Chest (1 view) rn 03/07 08:49 Order name: EKG; Complete Time: 08:50 rn 03/07 08:49 Order name: EKG - Nurse/Tech; Complete Time: 09:28 rn EC:55 Rate is 72 beats/min. Rhythm is regular. QRS [place] is Normal. GA interval is normal. QRS rn interval is normal. QT interval is normal. No Q waves. T waves are Normal. No ST changes noted. Clinical impression: Normal ECG. Interpreted by me. Reviewed by me. Administered Medications: No medications were administered Disposition Summary: 03/07/22 09:56 Discharge Ordered Location: Home rn Problem: new rn Symptoms: have improved rn Condition: Stable rn Diagnosis - Cervical disc disorder with radiculopathy rn Followup: rn - With: Private Physician - When: As needed - Reason: Recheck today's complaints, Re-evaluation by your physician Discharge Instructions: - Discharge Summary Sheet rn - Cervical Radiculopathy rn Forms: - Medication Reconciliation Form rn - Thank You Letter rn - Antibiotic litigation attorney - Prescription Opioid Use rn Prescriptions: - Cyclobenzaprine 10 mg Oral Tablet - take 1 tablet by ORAL route every 8 hours As needed; 15 tablet; Refills: 0, rn Product Selection Permitted - Tramadol 50 mg Oral Tablet - take 1 tablet by ORAL route every 8 hours as needed; 12 tablet; Refills: 0, rn Product Selection Permitted - Medrol (Jesús) 4 mg Oral Tablets, Dose Pack - take 1 tablet by ORAL route as directed - follow package instructions; 1 rn packet; Refills: 0, Product Selection Permitted Signatures: Dispatcher [employer] Eileen Blair RN RN iw Nieto, Roman, MD MD roller varnisher: (The following items were deleted from the chart) 08:50 08:46 Constitutional: This is a well developed, well nourished patient who is awake, rn alert, and in no acute distress. Head/Face: Normocephalic, atraumatic. Eyes: Periorbital areas with no swelling, redness, or edema. Neck: Trachea midline, no masses palpated, and no cervical lymphadenopathy. Supple, full range of motion without nuchal rigidity, or vertebral point tenderness. No Meningismus. Cardiovascular: Regular rate and rhythm. No pulse deficits. Respiratory: Lungs have equal breath sounds bilaterally, clear to auscultation and percussion. No rales, rhonchi or wheezes noted. No increased work of breathing, no retractions or nasal flaring. Abdomen/GI: Soft, non-tender, with normal bowel sounds. No distension or tympany. No guarding or rebound. No evidence of tenderness throughout. rn
--- NOTE | 2022-03-07 09:57 | ER ---
Nurse's Notes [facility] Name: Ke Edwards Jr Age: 77 yrs Sex: Male : 1945 Arrival Date: 03/07/2022 Time: 07:13 Bed 2 Private MD: Diagnosis: Cervical disc disorder with radiculopathy Presentation: 03/07 07:35 Chief complaint: Patient states: right shoulder, neck pain and numbness down right the iw right arm, started 3 days ago , pain is constant . he woke up with it one morning. Coronavirus screen: At this time, the client does not indicate any symptoms associated with coronavirus-19. Ebola Screen: Patient negative for fever greater than or equal to 101.5 degrees Fahrenheit, and additional compatible Ebola Virus Disease symptoms Patient denies exposure to infectious person. Patient denies travel to an Ebola-affected area in the 21 days before illness onset. No symptoms or risks identified at this time. Initial Sepsis Screen: Does the patient meet any 2 criteria? No. Patient's initial sepsis screen is negative. Does the patient have a suspected source of infection? No. Patient's initial sepsis screen is negative. Risk Assessment: Do you want to hurt yourself or someone else? Patient reports no desire to harm self or others. Onset of symptoms was March 04, 2022. 07:35 Method Of Arrival: Ambulatory iw 07:35 Acuity: SINDHU 3 iw Historical: - Allergies: 07:37 No Known Allergies; iw - Home Meds: 07:37 Amiodarone Oral [Active]; Xarelto oral [Active]; fenofibrate oral [Active]; iw levothyroxine oral [Active]; - PMHx: 07:37 Atrial fibrillation; Hypothyroidism; iw - PSHx: 07:37 cardiac ablation; rotator cuff right; Tonsillectomy; iw - Immunization history:: Client reports receiving the 2nd dose of the Covid vaccine. - Social history:: Smoking status: Patient denies any tobacco usage or history of. - Family history:: not pertinent. - Hospitalizations: : No recent hospitalization is reported. Screenin:15 [facility] ED Fall Risk Assessment (Adult) History of falling in the last 3 months, db including since admission No falls in past 3 months (0 pts). Abuse screen: Denies threats or abuse. Denies injuries from another. Nutritional screening: No deficits noted. Tuberculosis screening: No symptoms or risk factors identified. Assessment: 09:13 Reassessment: Patient appears in no apparent distress at this time. Patient and/or db family updated on plan of care and expected duration. Pain level reassessed. Patient is alert, oriented x 3, equal unlabored respirations, skin warm/dry/pink. states has right shoulder and back pain. Woke up with pain. General: Appears in no apparent distress. comfortable, Behavior is calm, cooperative, appropriate for age. Pain: Complains of pain in back and right shoulder. Neuro: No deficits noted. Level of Consciousness is awake, alert, obeys commands, Oriented to person, place, time, situation. Cardiovascular: No deficits noted. Respiratory: No deficits noted. Airway is patent Respiratory effort is even, unlabored, Respiratory pattern is regular, symmetrical. GI: No deficits noted. No signs and/or symptoms were reported involving the gastrointestinal system. : No deficits noted. No signs and/or symptoms were reported regarding the genitourinary system. Musculoskeletal: Reports pain in back and right shoulder. 10:07 Reassessment: Patient appears in no apparent distress at this time. No changes from db previously documented assessment. Patient and/or family updated on plan of care and expected duration. Pain level reassessed. Patient is alert, oriented x 3, equal unlabored respirations, skin warm/dry/pink. Vital Signs: 07:35 BP 171 / 70; Pulse 75; Resp 16; Temp 98.3; Pulse Ox 99% on R/A; Weight 117.93 kg; iw Height 5 ft. 10 in. (177.80 cm); 09:15 BP 162 / 86; Pulse 71; Resp 16; Pulse Ox 98% on R/A; db 09:45 BP 175 / 74; Pulse 72; Resp 16; Pulse Ox 97% on R/A; db 07:35 Body Mass Index 37.31 (117.93 kg, 177.80 cm) iw ED Course: 07:13 Patient arrived in ED. mr 07:14 Donnell Toussaint MD is Attending Physician. rn 07:37 Triage completed. iw 07:39 Arm band placed on. iw 08:01 CT C Spine In Process Unspecified. EDMS 08:32 XRAY Chest (1 view) In Process Unspecified. EDMS 09:11 Maggi Dupont, RN is Primary Nurse. db 09:28 EKG done, by ED staff. bc6 10:07 Patient has correct armband on for positive identification. Bed in low position. Call db light in reach. Side rails up X2. 10:07 No provider procedures requiring assistance completed. Patient did not have IV access db during this emergency room visit. Administered Medications: No medications were administered Medication: 10:07 VIS not applicable for this client. db Outcome: 09:56 Discharge ordered by . rn 10:07 Discharged to home ambulatory. db 10:07 Condition: stable 10:07 Discharge instructions given to patient, Instructed on discharge instructions, follow up and referral plans. Demonstrated understanding of instructions, Prescriptions given X 3. 10:08 Patient left the ED. db Signatures: Dispatcher [employer] [facility] Kyle Emilee Eileen Miller, RN Donnell Durbin MD MD rn Benton, Danielle, RN RN db Verenice Thompson bc6 Corrections: (The following items were deleted from the chart) 10:07 09:15 Reassessment: Patient appears in no apparent distress at this time. No changes db from previously documented assessment. Patient and/or family updated on plan of care and expected duration. Pain level reassessed. Patient is alert, oriented x 3, equal unlabored respirations, skin warm/dry/pink. db
[2022-03-07 10:14] VITALS: TEMP 98.3
[2022-03-07 10:16] VITALS: BP 175/74; O2SAT 97
--- NOTE | 2022-03-11 14:35 | EKG ---
Test Date: 2022-03-07 Test Time: 09:25:41 Concrete Pipe Making Machine Operator: RIKI MEASUREMENT RESULTS: Intervals: Rate: 72 UT: 172 QRSD: 84 QT: 468 QTc: 512 [place]: P: 65 UT: 172 QRS: -8 T: 34 INTERPRETIVE STATEMENTS: Sinus rhythm with premature atrial complexes Otherwise normal ECG No previous ECG available for comparison Electronically Signed On 03-11-22 14:32:50 LOG YARD DERRICK OPERATOR by Sp Rowe
== END 2022-03-07 10:08 | disposition home or self-care (01) ==
LOC: ER 07:10
DX: M50.10 Cervical disc disorder with radiculopathy, unspecified cervical region (principal)
CPT/HCPCS: 71045; 72125; 93005; 99283

== ENCOUNTER 2022-03-07 17:09 | Emergency (ER) | payer OTHER ==
--- OUTSIDE RECORDS SUMMARY | 2022-08-12 17:14 | XMS REPORT | Continuity of Care Document ---
:1945 Author Organization [facility] t Address [address] [place] [address]. [address] [place] [address] Care Team Providers Name Role Phone Aranza Schroeder Primary Care Physician Aranza Schroeder Attending Clinician Unavailable Doctor Unassigned, [place] Attending Clinician Unavailable ASHU DUTTON Attending Clinician Unavailable ASHU DUTTON Attending Clinician Unavailable Ashu Dutton MD Attending Clinician CHLOE RIVERO Attending Clinician Unavailable Elvis Washington MD Attending Clinician Nnamdi Andujar MD Attending Clinician Lashae Koehler RN Attending Clinician Unavailable Davy Andrew MD Attending Clinician Mark Moreira MD Attending Clinician Isela Rand Attending Clinician [phone] Nadia Andujar MA Attending Clinician Unavailable Shannon De Jesus MA Attending Clinician Unavailable Salma Mojica MD Attending Clinician Chaka Sepulveda MD Attending Clinician Danuta Ty MA Attending Clinician Unavailable JERE RODRIGUEZ Attending Clinician Unavailable Rickey Bonner Attending Clinician Tyrone Culver Attending Clinician Any Keys MA Attending Clinician Unavailable Anastacio BOLANOS, Nadine Attending Clinician Unavailable Jerri Kwok MA Attending Clinician Unavailable Shannon Bradford MA Attending Clinician Unavailable Prasanth BLANCAS, Munir Rader-Hsi Attending Clinician Ramone Peralta MA Attending Clinician Unavailable ISABEL MONTGOMERY Attending Clinician Unavailable DAVY ANDREW Admitting Clinician Unavailable Payers Payer Name Policy Type Policy Number Effective Date Expiration Date S ource GENERIC [id number] 2018 00:00:00 MEDICARE PART A [id number] 2010 AND B 00:00:00 MEDIGAP-GENERIC [id number] - GENERIC PAYOR MEDICARE PART A [id number] \T\ [id number] - MEDICARE MEDICARE MB [id number] 2012 [facility] NOVITAS 00:00:00 - [facility] SENTINEL C1 [id number] [facility] SENTINEL C1 [id number] [facility] SECURITY LIFE - [facility] MEDICARE MB [id number] 2012 [facility] NOVITAS 00:00:00 - [facility] Problems Condition Condition Condition Status Onset Resolution [...] MARCI MARCI Disease Active Methodi (obstructi (obstructi 7-13 st ve sleep ve sleep 00:00: Hospit a apnea) apnea) 00 l RLS RLS Disease Active Methodi (restless (restless 713 st legs legs 00:00: Hospita syndrome) syndrome) 00 l Chronic Stage 3 Problem Common kidney chronic Spirit disease kidney - [facility]I stage [address] disease, [address] (disorder) unspecifie Padmini kes d whether Medical stage 3a Center or 3b CKD [id number] Hypothyroi Problem Com mon dism, Spirit unspecifie - [facility]I d type [facility] [id number] Splenic Problem Common artery Spirit aneurysm - [facility] [id number] Skin Problem Common cancer Spirit - [facility] [id number] Unsteady Problem Commo n gait Spirit - [facility] Atrial Atrial Disease Active Methodi fibrillati fibrillati st on on Hospita l Hyperlipid Hyperlipid Disease Active M ethodi emia emia st Hospita l Allergies, Adverse Reactions, Alerts Allergy Allergy Status Severity Reaction(s) Onset Inactive Treating Comm ents Source Name Type Date Date Clinician NO KNOWN Drug Active Univers ALLERGIE Class ity of S [facility] Family History Family Member Diagnosis Comments Start Date Stop Date Source Natural father Heart disease [facility] Natural mother Heart disease [facility] Social History Social Habit Start Date Stop Date Quantity Comments Source History of tobacco Chews Tobacco Met [facility]ist use Hospital History SDOH [facility] Alcohol Std Drinks Medica l Center History SDOH [facility] Alcohol Binge Medical [facility] Sexual orientation [facility] Hospital Exposure to 2022-04-08 2022-04-18 Not sure University of SARS-CoV-2 (event) 00:00:00 13:15:00 [facility] Alcohol intake 2022-01-27 2022-01-27 Current drinker [facility] dist 00:00:00 00:00:00 of alcohol Hospital (finding) History of Social 2022-01-27 2022-01-[address] function 00:00:00 00:00:00 Hospital Alcohol Comment 2022-01-08 2022-01-08 once a week Methodis t 00:00:00 00:00:00 Hospital History SDOH 2018-05-28 2018-05-[address] [facility] Alcohol Frequency 00:00:00 00:00:00 Medical Center Tobacco use and 2018-05-27 2018-05-[address] [facility] k[facility] exposure 00:00:00 00:00:00 Medical Center Sex Ass[birth year] At [birth year] [facility] 00[facility] Smoking Status Start Date Stop Date Source Tobacco smoking consumption [facility] unknown Branch Never smoked tobacco [facility] Medications Ordered Filled Start Stop Current Ordering Indication Dosage Frequency Signature Comments Components Source Medication Medication Date Date Medication? Clinician (SIG) Name Name Gabapentin Gabapentin No 1{capsu BID Gabapentin 300 MG 300 MG 04-10 le} 300 MG 00:00: 00 Ciprofloxac Ciprofloxac 2022- No 1{table BID Ciprofloxa in HCl 500 in HCl 500 04-10 t} victor manuel HCl MG MG 00:00: 00:00 500 MG 00 :00 Fenofibrate Yes 160mg Take 160 U nivers 160 mg 1-12 mg by ity of tablet 00:00: mouth in [place] the Medical morning. Branch amiodarone Yes 200mg Take 200 Un manuel 200 mg 1-12 mg by ity of tablet 00:00: mouth in [place] the Medical morning. Branch levothyroxi Yes 50ug Take 50 Uni vers ne 50 mcg 1-12 mcg by ity of tablet 00:00: mouth [place] every Medical morning. Branch Fenofibrate Yes 160mg Take 160 U nivers 160 mg 1-12 mg by ity of tablet 00:00: mouth in [place] the Medical morning. Branch amiodarone Yes 200mg Take 200 Un manuel 200 mg 1-12 mg by ity of tablet 00:00: mouth in [place] the Medical morning. Branch levothyroxi Yes 50ug Take 50 Uni vers ne 50 mcg 1-12 mcg by ity of tablet 00:00: mouth [place] every Medical morning. Branch Fenofibrate Yes 160mg Take 160 U nivers 160 mg 1-12 mg by ity of tablet 00:00: mouth in [place] the Medical morning. Branch amiodarone Yes 200mg Take 200 Un manuel 200 mg 1-12 mg by ity of tablet 00:00: mouth in [place] the Medical morning. Branch levothyroxi Yes 50ug Take 50 Uni vers ne 50 mcg 1-12 mcg by ity of tablet 00:00: mouth [place] every Medical morning. Branch Cipro 500 Cipro 500 2021-03- No 1{table BID Cipro 500 MG MG 2-30 03-12 t} MG 00:00: 00:00 00 :00 Cipro 500 Cipro 500 2021-03- No 1{table BID Cipro 500 MG MG 2-30 03-12 t} MG 00:00: 00:00 00 :00 XARELTO 20 2021-03 Yes 20mg Take 20 mg U nivers mg tablet 2-15 by mouth ity of 00:00: in the [place] 00 morning. Medical Branch XARELTO 20 2021-03 Yes 20mg Take 20 mg U nivers mg tablet 2-15 by mouth ity of 00:00: in the [place] 00 morning. Medical Branch XARELTO 20 2021-03 Yes 20mg Take 20 mg U nivers mg tablet 2-15 by mouth ity of 00:00: in the [place] morning. Medical Branch GARLIC OIL 2021-03 Yes QD Take by Meth [facility] ORAL 2-[address] 13:45: daily. Hospita 19 l GARLIC OIL 2021-03 Yes QD Take by Meth [facility] ORAL 2-[address] 13:45: daily. Hospita 19 l pantoprazol 2021-03- No 40mg QD Take 1 Met hodi e 03-12- tablet (40 st (PROTONIX) 00:00: 00:00 mg total) H ospita 40 MG EC 00 :00 by mouth l tablet daily for 30 days. pantoprazol 2021-03 No 40mg QD Take 1 Met hodi e 03-12- tablet (40 st (PROTONIX) 00:00: 00:00 mg total) H ospita 40 MG EC 00 :00 by mouth l tablet daily for 30 days. sucralfate 2021-03- No 1g Q.25D Take 1 Met hodi (CARAFATE) 03-11 tablet (1 st 1 gram 00:00: 00:00 g total) Hospit a tablet 00 :00 by mouth 4 l (four) times a day before meals and nightly for 30 days. sucralfate 2021-03- No 1g Q.25D Take 1 Met hodi (CARAFATE) 03-11 tablet (1 st 1 gram 00:00: 00:00 g total) Hospit a tablet 00 :00 by mouth 4 l (four) times a day before meals and nightly for 30 days. ascorbic 2021-2- No QD Take by Metho di acid 03-[address] (VITAMIN C 09:22: 00:00 daily. Hosp [facility] ORAL) 06 :00 l ascorbic 2021-2- No QD Take by Metho di acid 03-[address] (VITAMIN C 09:22: 00:00 daily. [facility] ORAL) 06 :00 l rivaroxaban 2-0 Yes 20mg QD Take 1 Meth [facility] (Xarelto) 7-21 tablet (20 st 20 mg 00:00: mg total) Hospita tablet 00 by mouth l daily. rivaroxaban 2-0 Yes 20mg QD Take 1 Meth [facility] (Xarelto) 7-21 tablet (20 st 20 mg 00:00: mg total) Hospita tablet 00 by mouth l daily. rivaroxaban 2-0 2- No 20mg QD Take 1 Met hodi (Xarelto) -01 14-18 tablet (20 st 20 mg 00:00: 00:00 mg total) Hospit a tablet 00 :00 by mouth l daily. rivaroxaban 2-0 2- No 20mg QD Take 1 Met hodi (Xarelto) -01 14-18 tablet (20 st 20 mg 00:00: 00:00 mg total) Hospit a tablet 00 :00 by mouth l daily. rivaroxaban 2-0 2- No 20mg QD Take 1 Met hodi (Xarelto) -01 10- tablet (20 st 20 mg 00:00: 00:00 mg total) Hospit a tablet 00 :00 by mouth l daily. rivaroxaban 2-0 2022- No 20mg QD Take 1 Met hodi (Xarelto) 4-01 10-11 tablet (20 st 20 mg 00:00: 00:00 mg total) Hospit a tablet 00 :00 by mouth l daily. rivaroxaban 2-0 2022- No 20mg QD Take 1 Met hodi (Xarelto) 06-28- tablet (20 st 20 mg 00:00: 00:00 mg total) Hospit a tablet 00 :00 by mouth l daily for 180 days. amIODarone 0 Yes 200mg QD Take 1 [facility] (PACERONE) 4-[address] 200 MG 00:00: (200 mg Hospita tablet 00 total) by l mouth daily. fenofibrate 0 Yes 160mg QD Take 160 M ethodi (LOFIBRA) 4-[address] 160 MG 00:00: mouth Hospita tablet 00 daily. l levothyroxi 2021-0 Yes 50ug QD Take 50 Met hodi ne 4-[address] (SYNTHROID) 00:00: mouth Hospi ta 50 mcg 00 daily. l tablet amIODarone Yes 200mg QD Take 1 Meth [facility] (PACERONE) 4-[address] 200 MG 00:00: (200 mg Hospita tablet 00 total) by l mouth daily. fenofibrate Yes 160mg QD Take 160 M ethodi (LOFIBRA) 4-[address] 160 MG 00:00: mouth Hospita tablet 00 daily. l levothyroxi 0 Yes 50ug QD Take 50 Met hodi ne 4-[address] (SYNTHROID) 00:00: mouth Hospi ta 50 mcg 00 daily. l tablet diltiazem 2021- No 1{capsu QD Take 1 Me thodi CD 3-18 -21 le} capsule by st (CardIZEM 00:00: 00:00 mouth Hospit a CD) 180 MG 00 :00 daily. l 24 hr capsule diltiazem 2021- No 1{capsu QD Take 1 Me thodi CD 3-18 -21 le} capsule by st (CardIZEM 00:00: 00:00 mouth Hospit a CD) 180 MG 00 :00 daily. l 24 hr capsule Levothyroxi Levothyroxi 0 Yes Aranza 1 tablet Common ne Sodium ne Sodium 4-18 [place] on an Spi rit 00:00: empty - [facility]I [address] [facility] Fenofibrate Fenofibrate No 1{table QD [...] MG MG t_in_th 5 MG e_eveni ng} Rivaroxaban Rivaroxaban No 1{table QD Rivaroxaba 10 MG 10 MG t} n 10 MG Melatonin 5 Melatonin 5 No 1{table QD Melatonin MG MG t_in_th 5 MG e_eveni ng} Fenofibrate Fenofibrate No 1{table QD Fenofibrat 160 MG 160 MG t_with_ e 160 MG food} Xarelto 20 Xarelto 20 No 1{table QD Xarelto 20 MG MG t_with_ MG food} Garlic Garlic No Garlic Fish Oil Fish Oil No Fish Oil Vitamin C Vitamin C No BID Vitamin C 500 MG 500 MG 500 MG Levothyroxi Levothyroxi No QD Levothyrox ne Sodium ne Sodium ine Sodium 50 MCG 50 MCG 50 MCG Rivaroxaban Rivaroxaban No 1{table QD Rivaroxaba 10 MG 10 MG t} n 10 MG Melatonin 5 Melatonin 5 No 1{table QD Melatonin MG MG t_in_th 5 MG e_eveni ng} Fenofibrate Fenofibrate No 1{table QD Fenofibrat 160 MG 160 MG t_with_ e 160 MG food} Xarelto 20 Xarelto 20 No 1{table QD Xarelto 20 MG MG t_with_ MG food} Garlic Garlic No Garlic Fish Oil Fish Oil No Fish Oil Vitamin C Vitamin C No BID Vitamin C 500 MG 500 MG 500 MG Levothyroxi Levothyroxi No QD Levothyrox ne Sodium ne Sodium ine Sodium 50 MCG 50 MCG 50 MCG Vitamin C Vitamin C No BID Vitamin C 500 MG 500 MG 500 MG Melatonin 5 Melatonin 5 No 1{table QD Melatonin MG MG t_in_th 5 MG e_eveni ng} Levothyroxi Levothyroxi No QD Levothyrox ne Sodium ne Sodium ine Sodium 50 MCG 50 MCG 50 MCG Garlic Garlic No Garlic Amiodarone Amiodarone No 1{table QD Amiodarone HCl 200 MG HCl 200 MG t} HCl 200 MG Fenofibrate Fenofibrate No 1{table QD Fenofibrat 160 MG 160 MG t_with_ e 160 MG food} Fish Oil Fish Oil No Fish Oil Rivaroxaban Rivaroxaban No 1{table QD Rivaroxaba 10 MG 10 MG t} n 10 MG Xarelto 20 Xarelto 20 No 1{table QD Xarelto 20 MG MG t_with_ MG food} Vitamin C Vitamin C No BID Vitamin C 500 MG 500 MG 500 MG Melatonin 5 Melatonin 5 No 1{table QD Melatonin MG MG t_in_th 5 MG e_eveni ng} Amiodarone Amiodarone No 1{table QD Amiodarone HCl 200 MG HCl 200 MG t} HCl 200 MG Levothyroxi Levothyroxi No QD Levothyrox ne Sodium ne Sodium ine Sodium 50 MCG 50 MCG 50 MCG Garlic Garlic No Garlic Xarelto 20 Xarelto 20 No 1{table QD Xarelto 20 MG MG t_with_ MG food} Fenofibrate Fenofibrate No 1{table QD Fenofibrat 160 MG 160 MG t_with_ e 160 MG food} Fish Oil Fish Oil No Fish Oil Rivaroxaban Rivaroxaban No 1{table QD Rivaroxaba 10 MG 10 MG t} n 10 MG Fenofibrate Fenofibrate No QD Fenofibrat 160 MG [...] Commen ts Source Name Name FLUZONE HIGH-DOSE 2021-12-02 Completed Meth odist 00:00:00 [facility] FLUZONE HIGH-DOSE 2021-12-02 Completed Meth odist 00:00:00 [facility] Moderna COVID-19 Moderna COVID-19 2020-12-31 Completed [facility] - Vaccine Vaccine 16:14:00 [facility] Moderna COVID-19 Moderna COVID-19 2020-12-31 Completed [facility] - Vaccine Vaccine 16:14:00 [facility] Moderna COVID-19 Moderna COVID-19 2020-12-31 Completed [facility] - Vaccine Vaccine 16:14:00 [facility] Moderna COVID-19 Moderna COVID-19 2020-12-31 Completed [facility] - Vaccine Vaccine 16:14:00 [facility] Moderna COVID-19 Moderna COVID-19 2020-12-31 Completed [facility] - Vaccine Vaccine 16:14:00 [facility] Moderna COVID-19 Moderna COVID-19 2020-12-31 Completed [facility] - Vaccine Vaccine 16:14:00 [facility] Moderna COVID-19 Moderna COVID-19 2020-12-31 Completed [facility] - Vaccine Vaccine 16:14:00 [facility] Moderna COVID-19 Moderna COVID-19 2020-12-31 Completed [facility] - Vaccine Vaccine 16:14:00 [facility] Moderna COVID-19 Moderna COVID-19 2020-12-31 Completed [facility] - Vaccine Vaccine 16:14:00 [facility] Moderna COVID-19 Moderna COVID-19 2020-12-31 Completed [facility] - Vaccine Vaccine 16:14:00 [facility] Moderna COVID-19 Moderna COVID-19 2020-12-31 Completed [facility] - Vaccine Vaccine 16:14:00 [facility] Moderna COVID-19 Moderna COVID-19 2020-12-31 Completed [facility] - Vaccine Vaccine 16:14:00 [facility] Moderna COVID-19 Moderna COVID-19 2020-12-31 Completed [facility] - Vaccine Vaccine 16:14:00 [facility] Moderna COVID-19 Moderna COVID-19 2020-12-31 Completed [facility] - Vaccine Vaccine 16:14:00 [facility] FLUZONE HIGH DOSE FLUZONE HIGH DOSE 2020-11-09 Completed [facility] - OVER 65 OVER 65 15:50:00 [facility] FLUZONE HIGH DOSE FLUZONE HIGH DOSE 2020-11-09 Completed [facility] - OVER 65 OVER 65 15:50:00 [facility] FLUZONE HIGH DOSE FLUZONE HIGH DOSE 2020-11-09 Completed [facility] - OVER 65 OVER 65 15:50:00 [facility] FLUZONE HIGH DOSE FLUZONE HIGH DOSE 2020-11-09 Completed [facility] - OVER 65 OVER 65 15:50:00 [facility] FLUZONE HIGH DOSE FLUZONE HIGH DOSE 2020-11-09 Completed [facility] - OVER 65 OVER 65 15:50:00 [facility] FLUZONE HIGH DOSE FLUZONE HIGH DOSE 2020-11-09 Completed [facility] - OVER 65 OVER 65 15:50:00 [facility] FLUZONE HIGH DOSE FLUZONE HIGH DOSE 2020-11-09 Completed [facility] - OVER 65 OVER 65 15:50:00 [facility] FLUZONE HIGH DOSE FLUZONE HIGH DOSE 2020-11-09 Completed [facility] - OVER 65 OVER 65 15:50:00 [facility] FLUZONE HIGH DOSE FLUZONE HIGH DOSE 2020-11-09 Completed [facility] - OVER 65 OVER 65 15:50:00 [facility] FLUZONE HIGH DOSE FLUZONE HIGH DOSE 2020-11-09 Completed [facility] - OVER 65 OVER 65 15:50:00 [facility] FLUZONE HIGH DOSE FLUZONE HIGH DOSE 2020-11-09 Completed [facility] - OVER 65 OVER 65 15:50:00 [facility] FLUZONE HIGH DOSE FLUZONE HIGH DOSE 2020-11-09 Completed [facility] - OVER 65 OVER 65 15:50:00 [facility] FLUZONE HIGH DOSE FLUZONE HIGH DOSE 2020-11-09 Completed [facility] - OVER 65 OVER 65 15:50:00 [facility] FLUZONE HIGH DOSE FLUZONE HIGH DOSE 2020-11-09 Completed [facility] - OVER 65 OVER 65 15:50:00 [facility] Pneumovax (PPSV23) Pneumovax (PPSV23) 2019-12-07 Completed [facility] - 19:51:00 [facility] Pneumovax (PPSV23) Pneumovax (PPSV23) 2019-12-07 Completed [facility] - 19:51:00 [facility] Pneumovax (PPSV23) Pneumovax (PPSV23) 2019-12-07 Completed [facility] - 19:51:00 [facility] Pneumovax (PPSV23) Pneumovax (PPSV23) 2019-12-07 Completed [facility] - 19:51:00 [facility] Pneumovax (PPSV23) Pneumovax (PPSV23) 2019-12-07 Completed [facility] - 19:51:00 [facility] Pneumovax (PPSV23) Pneumovax (PPSV23) 2019-12-07 Completed [facility] - 19:51:00 [facility] Pneumovax (PPSV23) Pneumovax (PPSV23) 2019-12-07 Completed [facility] - 19:51:00 [facility] Pneumovax (PPSV23) Pneumovax (PPSV23) 2019-12-07 Completed [facility] - 19:51:00 [facility] Pneumovax (PPSV23) Pneumovax (PPSV23) 2019-12-07 Completed [facility] - 19:51:00 [facility] Pneumovax (PPSV23) Pneumovax (PPSV23) 2019-12-07 Completed [facility] - 19:51:00 [facility] Pneumovax (PPSV23) Pneumovax (PPSV23) 2019-12-07 Completed [facility] - 19:51:00 [facility] Pneumovax (PPSV23) Pneumovax (PPSV23) 2019-12-07 Completed [facility] - 19:51:00 [facility] Pneumovax (PPSV23) Pneumovax (PPSV23) 2019-12-07 Completed [facility] - 19:51:00 [facility] Pneumovax (PPSV23) Pneumovax (PPSV23) 2019-12-07 Completed [facility] - 19:51:00 [facility] Pneumovax (PPSV23) Pneumovax (PPSV23) 2019-12-07 Completed [facility] - 19:51:00 [facility] Pneumovax (PPSV23) Pneumovax (PPSV23) 2019-12-07 Completed [facility] - 19:51:00 [facility] FLUZONE HIGH DOSE FLUZONE HIGH DOSE 2019-12-07 Completed [facility] - OVER 65 OVER 65 19:50:00 [facility] FLUZONE HIGH DOSE FLUZONE HIGH DOSE 2019-12-07 Completed [facility] - OVER 65 OVER 65 19:50:00 [facility] FLUZONE HIGH DOSE FLUZONE HIGH DOSE 2019-12-07 Completed [facility] - OVER 65 OVER 65 19:50:00 [facility] FLUZONE HIGH DOSE FLUZONE HIGH DOSE 2019-12-07 Completed [facility] - OVER 65 OVER 65 19:50:00 [facility] FLUZONE HIGH DOSE FLUZONE HIGH DOSE 2019-12-07 Completed [facility] - OVER 65 OVER 65 19:50:00 [facility] FLUZONE HIGH DOSE FLUZONE HIGH DOSE 2019-12-07 Completed [facility] - OVER 65 OVER 65 19:50:00 [facility] FLUZONE HIGH DOSE FLUZONE HIGH DOSE 2019-12-07 Completed [facility] - OVER 65 OVER 65 19:50:00 [facility] FLUZONE HIGH DOSE FLUZONE HIGH DOSE 2019-12-07 Completed [facility] - OVER 65 OVER 65 19:50:00 [facility] FLUZONE HIGH DOSE FLUZONE HIGH DOSE 2019-12-07 Completed [facility] - OVER 65 OVER 65 19:50:00 [facility] FLUZONE HIGH DOSE FLUZONE HIGH DOSE 2019-12-07 Completed [facility] - OVER 65 OVER 65 19:50:00 [facility] FLUZONE HIGH DOSE FLUZONE HIGH DOSE 2019-12-07 Completed [facility] - OVER 65 OVER 65 19:50:00 [facility] FLUZONE HIGH DOSE FLUZONE HIGH DOSE 2019-12-07 Completed [facility] - OVER 65 OVER 65 19:50:00 [facility] FLUZONE HIGH DOSE FLUZONE HIGH DOSE 2019-12-07 Completed [facility] - OVER 65 OVER 65 19:50:00 [facility] FLUZONE HIGH DOSE FLUZONE HIGH DOSE 2019-12-07 Completed [facility] - OVER 65 OVER 65 19:50:00 [facility] FLUZONE HIGH DOSE FLUZONE HIGH DOSE 2019-12-07 Completed [facility] - OVER 65 OVER 65 19:50:00 [facility] FLUZONE HIGH DOSE FLUZONE HIGH DOSE 2019-12-07 Completed [facility] - OVER 65 OVER 65 19:50:00 [facility] Tdap 2018-05-[address] [facility] 00:00:00 [facility] Tdap 2018-05-27 Completed [facility]00 [facility] Tdap 2018-05-[address] [facility] 00:00:00 [facility] Tdap 2018-05-[address] [facility] 00:00:00 [facility] Prevnar 13 Prevnar 13 2017-11-02 Completed [facility] - -Pneumonia Vaccine -Pneumonia Vaccine 14:37:00 [facility] Prevnar 13 Prevnar 13 2017-11-02 Completed [facility] - -Pneumonia Vaccine -Pneumonia Vaccine 14:37:00 [facility] Prevnar 13 Prevnar 13 2017-11-02 Completed [facility] - -Pneumonia Vaccine -Pneumonia Vaccine 14:37:00 [facility] Prevnar 13 Prevnar 13 2017-11-02 Completed [facility] - -Pneumonia Vaccine -Pneumonia Vaccine 14:37:00 [facility] Prevnar 13 Prevnar 13 2017-11-02 Completed [facility] - -Pneumonia Vaccine -Pneumonia Vaccine 14:37:00 [facility] Prevnar 13 Prevnar 13 2017-11-02 Completed [facility] - -Pneumonia Vaccine -Pneumonia Vaccine 14:37:00 [facility] Prevnar 13 Prevnar 13 2017-11-02 Completed [facility] - -Pneumonia Vaccine -Pneumonia Vaccine 14:37:00 [facility] Prevnar 13 Prevnar 13 2017-11-02 Completed [facility] - -Pneumonia Vaccine -Pneumonia Vaccine 14:37:00 [facility] Prevnar 13 Prevnar 13 2017-11-02 Completed [facility] - -Pneumonia Vaccine -Pneumonia Vaccine 14:37:00 [facility] Prevnar 13 Prevnar 13 2017-11-02 Completed [facility] - -Pneumonia Vaccine -Pneumonia Vaccine 14:37:00 [facility] Prevnar 13 Prevnar 13 2017-11-02 Completed [facility] - -Pneumonia Vaccine -Pneumonia Vaccine 14:37:00 [facility] Prevnar 13 Prevnar 13 2017-11-02 Completed [facility] - -Pneumonia Vaccine -Pneumonia Vaccine 14:37:00 [facility] Prevnar 13 Prevnar 13 2017-11-02 Completed [facility] - -Pneumonia Vaccine -Pneumonia Vaccine 14:37:00 [facility] Prevnar 13 Prevnar 13 2017-11-02 Completed [facility] - -Pneumonia Vaccine -Pneumonia Vaccine 14:37:00 [facility] Prevnar 13 Prevnar 13 2017-11-02 Completed [facility] - -Pneumonia Vaccine -Pneumonia Vaccine 14:37:00 [facility] Prevnar 13 Prevnar 13 2017-11-02 Completed [facility] - -Pneumonia Vaccine -Pneumonia Vaccine 14:37:00 [facility] Prevnar 13 Prevnar 13 2017-11-02 Completed [facility] - -Pneumonia Vaccine -Pneumonia Vaccine 00:00:00 [facility] Vital Signs Vital Name Observation Time Observation Value Comments Source Systolic blood 2022-04-18 19:35:00 149 mm[Hg] Univer sity of pressure [facility] Diastolic blood 2022-04-18 19:35:00 84 mm[Hg] Unive rsity of pressure [facility] Heart rate 2022-04-18 19:35:00 83 /min Universi ty of [facility] Body height 2022-04-18 19:35:00 177.8 cm Universi ty [facility] Body weight 2022-04-18 19:35:00 112.492 kg Universi ty [facility] BMI 2022-04-18 19:35:00 35.58 kg/m2 [facility] in 2022-04-18 19:35:00 99 /min [facility] Arterial blood by [facility] Pulse oximetry Branch height 2022-04-08 08:20:00 69.50 [in_i] [facility] weight 2022-04-08 08:20:00 243 [lb_av] [facility] temperature 2022-04-08 08:20:00 98.1 [degF] [facility] bmi 2022-04-08 08:20:00 35.37 kg/m2 [facility] oximetry 2022-04-08 08:20:00 98 % [facility] respiratory rate 2022-04-08 08:20:00 17 /min Comm on [facility] blood pressure 2022-04-08 08:20:00 122 mm[Hg] [facility] - systolic [facility] blood pressure 2022-04-08 08:20:00 86 mm[Hg] [facility] - diastolic [facility] height 2022-03-07 11:20:00 69.50 [in_i] [facility] weight 2022-03-07 11:20:00 245 [lb_av] [facility] temperature 2022-03-07 11:20:00 97.4 [degF] [facility] bmi 2022-03-07 11:20:00 35.66 kg/m2 [facility] oximetry 2022-03-07 11:20:00 100 % [facility] respiratory rate 2022-03-07 11:20:00 17 /min Comm on [facility] blood pressure 2022-03-07 11:20:00 148 mm[Hg] Common [facility] - systolic [facility] blood pressure 2022-03-07 11:20:00 82 mm[Hg] Common [facility] - diastolic [facility] height 2022-01-14 11:00:00 69.50 [in_i] Common [facility] weight 2022-01-14 11:00:00 256.4 [lb_av] [facility] temperature 2022-01-14 11:00:00 97.3 [degF] Common [facility] bmi 2022-01-14 11:00:00 37.32 kg/m2 [facility] oximetry 2022-01-14 11:00:00 98 % Common [facility] respiratory rate 2022-01-14 11:00:00 16 /min Comm on [facility] blood pressure 2022-01-14 11:00:00 138 mm[Hg] Common [facility] - systolic [facility] blood pressure 2022-01-14 11:00:00 77 mm[Hg] Common [facility] diastolic [facility] height 2021-10-28 11:40:00 69.50 [in_i] Common [facility] weight 2021-10-28 11:40:00 264.6 [lb_av] Common [facility] temperature 2021-10-28 11:40:00 98.2 [degF] Common [facility] bmi 2021-10-28 11:40:00 38.51 kg/m2 [facility] oximetry 2021-10-28 11:40:00 97 % [facility] respiratory rate 2021-10-28 11:40:00 16 /min Comm on [facility] blood pressure 2021-10-28 11:40:00 139 mm[Hg] Common [facility] - systolic [facility] blood pressure 2021-10-28 11:40:00 68 mm[Hg] [facility] - [facility] height 2021-09-26 15:00:00 69.50 [in_i] Common [facility] weight 2021-09-26 15:00:00 268.6 [lb_av] Common [facility] temperature 2021-09-26 15:00:00 97.3 [degF] Common [facility] bmi 2021-09-26 15:00:00 39.09 kg/m2 Common [facility] oximetry 2021-09-26 15:00:00 96 % Common [facility] respiratory rate 2021-09-26 15:00:00 18 /min Comm on [facility] blood pressure 2021-09-26 15:00:00 135 mm[Hg] [facility] - systolic [facility] blood pressure 2021-09-26 15:00:00 65 mm[Hg] [facility] - diastolic [facility] height 2021-07-29 16:00:00 69.50 [in_i] Common [facility] weight 2021-07-29 16:00:00 267.4 [lb_av] [facility] temperature 2021-07-29 16:00:00 98.6 [degF] Common S [facility]irit [facility] bmi 2021-07-29 16:00:00 38.92 kg/m2 Common [facility] oximetry 2021-07-29 16:00:00 97 % [facility] respiratory rate 2021-07-29 16:00:00 18 /min Comm on [facility] blood pressure 2021-07-29 16:00:00 140 mm[Hg] Common [facility] - systolic [facility] blood pressure 2021-07-29 16:00:00 70 mm[Hg] [facility] - diastolic [facility] height 2021-06-26 15:20:00 69.50 [in_i] Common [facility] weight 2021-06-26 15:20:00 268 [lb_av] [facility] temperature 2021-06-26 15:20:00 97.5 [degF] Common [facility] bmi 2021-06-26 15:20:00 39.01 kg/m2 Common [facility] oximetry 2021-06-26 15:20:00 98 % [facility] respiratory rate 2021-06-26 15:20:00 18 /min Comm on [facility] blood pressure 2021-06-26 15:20:00 138 mm[Hg] [facility] - systolic [facility] blood pressure 2021-06-26 15:20:00 82 mm[Hg] [facility] - diastolic [facility] height 2020-11-07 15:20:00 69.50 [in_i] [facility] weight 2020-11-07 15:20:00 264 [lb_av] [facility] temperature 2020-11-07 15:20:00 97.8 [degF] [facility] bmi 2020-11-07 15:20:00 38.42 kg/m2 [facility] oximetry 2020-11-07 15:20:00 98 % [facility] respiratory rate 2020-11-07 15:20:00 21 /min Comm on [facility] blood pressure 2020-11-07 15:20:00 108 mm[Hg] [facility] - systolic [facility] blood pressure 2020-11-07 15:20:00 68 mm[Hg] [facility] - diastolic [facility] WEIGHT 2019-10-06 13:13:50 118.8 kg Systolic blood 2022-02-17 19:42:00 132 mm[Hg] [facility] pressure Diastolic blood 2022-02-17 19:42:00 81 mm[Hg] [facility] pressure Heart rate 2022-02-17 19:42:00 77 /min [facility] Body temperature 2022-02-17 19:42:00 36.28 Gayatri [facility] Body height 2022-02-17 19:42:00 177.8 cm [facility] Body weight 2022-02-17 19:42:00 116.665 kg [facility] BMI 2022-02-17 19:42:00 36.90 kg/m2 [facility] Oxygen saturation in 2022-02-17 19:42:00 98 /min [facility] Arterial blood by Pulse oximetry Respiratory rate 2022-01-09 13:10:00 18 /min [facility] Procedures Procedure Date / Time Performing Clinician Source Performed EXTERNAL PROVIDER 2022-06-24 05:01:00 Doctor Unassigned, No Univ [facility] RECORDS Name Medical Branch OCT, RETINA - OU - BOTH 2022-03-12 09:09:01 [facility] EYES Medicine OPTOS FUNDUS PHOTOS - OU 2022-03-12 09:09:00 [facility] EYE Medicine CT ABDOMEN PELVIS WO 2022-02-10 17:53:48 Elvis Washington [facility] CONTRAST ECG 12-LEAD 2022-01-27 17:54:29 Nnamdi Andujar spital BASIC METABOLIC PANEL 2022-01-09 12:28:00 [facility] MAGNESIUM LEVEL 2022-01-09 12:28:00 Nayely Pickens [facility] Tajdin ESTIMATED GFR 2022-01-09 12:28:00 Nnamdi Andujar spital CBC WITH PLATELET AND 2022-01-09 08:45:00 Andujar, [facility] DIFFERENTIAL ECG 12-LEAD 2022-01-08 19:33:23 Nnamdi Andujar spital EP COMPLETE EP STUDY W 2022-01-08 18:56:29 [facility] ABLATION PULMONARY VEIN ACTIVATED CLOTTING TIME 2022-01-08 18:50:00 [facility] ACTIVATED CLOTTING TIME 2022-01-08 18:46:00 [facility] ACTIVATED CLOTTING TIME 2022-01-08 18:37:[facility] 2022-01-08 18:05[facility] 2022-01-08 17[facility]58[facility]00 [facility] 2022-01-08 17:48:00 [facility] 2022-01-08 17:39:00 [facility] OK AN ELECTIVE 2022-01-08 16:44:00 Keyona Isela [facility] ENDOTRACHEAL AIRWAY [place] ECG PRE/POST OP 2022-01-08 15:05:15 Nnamdi Andujar spital ABO AND RH CONFIRMATION 2022-01-08 14:25[facility]OT[facility]OMBIN TIME WITH 2022-01-03 18:47:00 [facility] INR TYPE AND SCREEN 2022-01-03 18:47:00 [facility] COMPREHENSIVE METABOLIC 2022-01-03 18:47:00 [facility] PANEL CBC WITH PLATELET AND 2022-01-03 18:47:00 [facility] DIFFERENTIAL ESTIMATED GFR 2022-01-03 18:47:00 Nnamdi Andujar spital ECG 12-LEAD 2021-12-06 13:34:46 Salma Mojica spital ECG 12-LEAD 2021-12-02 14:02:29 Nnamdi Andujar spital ECG 12-LEAD 2021-11-06 15:40:06 Salma Mojica spital XR LUMBAR SPINE COMPLETE 2021-10-11 18:21:45 Tyrone Canchola [facility] W BENDING CT CHEST WO CONTRAST 2021-09-25 11:52:39 [facility] 2 VW 2021-09-18 16:13:18 [facility] US CAROTID DUPLEX 2021-08-26 19:56:50 [facility] BILATERAL [facility] CT ANGIOGRAM ABDOMINAL 2021-08-26 19:36:02 [facility] AORTA AND BILATERAL ILIOFEMORAL RUNOFF W WO CONTRAST POC CREATININE 2021-08-26 19:10:00 Elvis [facility]ist [facility] spital ESTIMATED GFR 2021-08-26 19:10:00 Elvis Washington Ho spital US ANKLE BRACHIAL INDEX 2021-07-24 20:00:00 [facility] US DUPLEX ARTERIAL LOWER 2021-07-24 19:18:07 [facility] EXTREMITY BILATERAL [facility] CV STRESS TEST NUCLEAR 2021-07-24 16:07:22 [facility] CARDIO Amyruyojana Palmer NM MYOCARDIAL PERFUSION 2021-07-24 16:07:22 [facility] REST STRESS 1 DAY Isabel Palmer TTE COMPLETE, WO 2021-07-17 14:21:53 WiNathalia andersen H [facility]spital CONTRAST, W DOPPLER Isabel Palmer ([id number]) ECG 12-LEAD 2021-06-28 13:40:51 WickramSteve gutierrezist Ho spital Amyrutannera Estela Plan of Care Planned Activity Planned Date Details Comments Source Future Scheduled 2022-06-09 [facility] 01:22:36 screening (procedure) [code = 973881942] Future Scheduled 2022-06-09 SHINGLES VACCINES Method [facility] Test 01:22:36 (1 of 2) [code = SHINGLES VACCINES (1 of 2)] Future Scheduled 2022-06-09 COVID-19 VACCINE (5 [facility] Test 01:22:36 - Booster for Moderna series) [code = COVID-19 VACCINE (5 - Booster for Moderna series)] Future Scheduled 2022-06-09 INFLUENZA VACCINE Method [facility] Test 01:22:36 [code = INFLUENZA VACCINE] Future Scheduled 2022-02-24 [facility] 16:50:38 screening (procedure) [code = 645444592] Future Scheduled 2022-02-24 SHINGLES VACCINES [facility] Test 16:50:38 (1 of 2) [code = SHINGLES VACCINES (1 of 2)] Future Scheduled 2022-02-24 COVID-19 VACCINE (5 [facility] Test 16:50:38 - Booster for Moderna series) [code = COVID-19 VACCINE (5 - Booster for Moderna series)] Encounters Start End Encounter Admission Attending Care Care Encounter Source Date/Time Date/Time Type Type Clinicians Facility Department ID 2022-05-30 Outpatient [place] [facility] [id number] Common 11:56:00 Aranza [id number] [facility] 2022-05-21 Out[place] [facility] [id number] Common 13:52:01 Aranza [id number] [facility] 2022-04-14 Outpatient [place] [facility] [id number] Common 10:25:00 Aranza [id number] [facility] 2021-12-26 Outpatient [place] [facility] [id number] Common 15:15:01 Aranza [id number] [facility] 2021-09-24 Out[address] [place] [address] [facility] [id number] Common 10:22:01 Aranza [id number] [facility] 2021-04-11 Outpatient MDA MDA [id number] 18:08:28 Andelijah lety 2021-04-11 Outpatient MDA MDA [id number] [facility]:08[facility]-04-03 Out[address] [place] [address] [facility] [id number] Common 12:34:10 Aranza [id number] [facility] 2021-04-03 Outpatient Glen Aubrey, STJORDAN [facility] [id number] Common 11:08:54 Aranza [id number] [facility] 2021-04-03 Out[address] [place] [address] [facility] [id number] Common 11:06:18 Aranza [id number] [facility] 2022-06-24 2022-06-24 Orders Doctor CORONA 1.2.840.114 [id number] Univers 00:00:00 00:00:00 Only Unassigned, VANESSA 350.1.13.[address] [facility] 4.2.7.2.686 Addison as [id number] [address] 2022-04-18 2022-04-18 Outpatient R ASHU DUTTON [facility] [id number] Univers 13:40:00 14:56:42 ASHU DUTTON ity [facility] 2022-04-18 2022-04-18 Office Marija [facility] 1.2.840.114 [id number] Univers 13:40:00 14:56:42 Visit Ashu [facility] 350.1.13.10 ity of [place] 4.2.7.2.686 Addison as TON?BLEA [id number] Hi [address] MEDICAL OFFICE BUILDING 2022-04-17 2022-04-17 Outpatient BASE LOADER, [facility] [id number] [facility] 08:45:53 10:33:03 CHLOE clement of Medicin e 2022-04-10 2022-04-10 (TEL) STLMLC STLMLC [id number] Co mmon 00:00:00 00:00:00 [facility] - [facility] 2022-04-08 2022-04-08 OFFICE STLMLC STLMLC [id number] Co mmon 00:00:00 00:00:00 VISIT Spirit ESTAB PT - [facility]I LEVEL 4 [facility] 2022-03-12 2022-03-12 Outpatient BASE LOADER, [facility] [id number] [facility] 07:25:29 10:00:21 CHLOE clement of Medicin e 2022-03-07 2022-03-07 (TEL) STLMLC STLMLC [id number] Co mmon 00:00:00 00:00:00 [facility] - [facility] 2022-03-07 2022-03-07 OFFICE STLMLC STLMLC [id number] Co mmon 00:00:00 00:00:00 VISIT Spirit ESTAB PT - CHI LEVEL 1 [facility] 2022-02-20 2022-02-20 (TEL) STLMLC STLMLC [id number] Co mmon 00:00:00 00:00:00 [facility] - [facility] 2022-02-17 2022-02-17 Office Elvis Washington 1.2.840.1 [id number] Methodi 13:30:00 15:55:[address] 3.430.2.7 Hospit a .3.917889 l .8 2022-02-17 2022-02-17 Office Elvis Washington 1.2.840.1 [id number] 72320 Methodi 13:30:00 15:55:[address] 3.430.2.7 Hospit a .3.386762 l .8 2022-02-17 2022-02-17 Travel 1.2.840.1 1.2.629.600 2061 [id number] Methodi 00:00:00 00:00:[address] 3.430.2.7 0.2.7.3.698 Ho spita .3.152025 084.8 l .8 2022-02-17 2022-02-17 Travel 1.2.840.1 1.2.013.794 5720 556241 Methodi 00:00:00 00:00:[address] 3.430.2.7 0.2.7.3.698 Ho spita .3.847818 084.8 l .8 2022-02-10 2022-02-10 [facility] Elvis Washington 1.2.840.1 [id number] 2099 [id number] Methodi 08:11:01 23:59:[address] 3.430.2.7 Hospit a .3.696199 l .8 2022-02-10 2022-02-10 [facility] Elvis Washington 1.2.840.1 [id number] 2099 [id number] Methodi 08:11:01 23:59:[address] 3.430.2.7 Hospit a .3.366799 l .8 2022-02-10 2022-02-10 Travel 1.2.840.1 1.2.550.620 8036 264462 Methodi 00:00:00 00:00:[address] 3.430.2.7 0.2.7.3.698 Ho spita .3.942893 084.8 l .8 2022-02-10 2022-02-10 Travel 1.2.840.1 1.2.675.683 5556 350210 Methodi 00:00:00 00:00:[address] 3.430.2.7 0.2.7.3.698 Ho spita .3.834888 084.8 l .8 2022-01-27 2022-01-27 Office Andujar, 1.2.840.1 [id number] 6092 Methodi 11:10:00 12:05:45 Visit Apoor 08236.1.[address] 3.430.2.7 Hospit a .3.970139 l .8 2022-01-27 2022-01-27 Office Andujar, 1.2.840.1 [id number] 7082 Methodi 11:10:00 12:05:45 Visit Apoor 00494.1.[address] 3.430.2.7 Hospit a .3.312308 l .8 2022-01-27 2022-01-27 Travel 1.2.840.1 1.2.678.886 6171 098377 Methodi 00:00:00 00:00:[address] 3.430.2.7 0.2.7.3.698 Ho spita .3.272198 084.8 l .8 2022-01-27 2022-01-27 Travel 1.2.840.1 1.2.702.700 1245 780763 Methodi 00:00:00 00:00:[address] 3.430.2.7 0.2.7.3.698 Ho spita .3.711528 084.8 l .8 2022-01-14 2022-01-14 [facility] [id number] Co mmon 00:00:00 00:00:00 VISIT EST Spir it PT LEVEL 3 - [facility] 2022-01-14 2022-01-14 Telephone Zakia, 1.2.840.1 [id number] Methodi 00:00:00 00:00:[address] 3.430.2.7 Hospit a .3.902462 l .8 2022-01-14 2022-01-14 Telephone Zakia, 1.2.840.1 [id number] Methodi 00:00:00 00:00:[address] 3.430.2.7 Hospit a .3.758888 l .8 2022-01-08 2022-01-09 [facility] [id number] Methodi 08:49:00 10:12:00 Encounter Davy Andrew 16275.1.[address] 3.430.2.7 Hospit a .3.744350 l .8 2022-01-08 2022-01-09 [facility] Nnamdi 1.2.840.1 [id number] Methodi 08:49:00 10:12:00 Encounter Davy Andrew 90271.1.[address] 3.430.2.7 Hospit a .3.894430 l .8 2022-01-08 2022-01-08 Anesthesia Mark Moreira 1.2.840.1 [id number] Methodi 11:26:00 14:27:00 Event Isela Rand 99673.1.[address] 3.430.2.7 Hospit a .3.908470 l .8 2022-01-08 2022-01-08 Anesthesia Mark Moreira 1.2.840.1 [id number] Methodi 11:26:00 14:27:00 Event Isela Rand 65444.1.[address] 3.430.2.7 Hospit a .3.068266 l .8 2022-01-08 2022-01-08 Surgery Andujar, 1.2.840.1 [id number] 5915 Methodi 10:55:00 13:30:[address] 3.430.2.7 Hospit a .3.266387 l .8 2022-01-08 2022-01-08 Surgery Andujar, 1.2.840.1 [id number] 356822 9150 Methodi 10:55:00 13:30:[address] 3.430.2.7 Hospit a .3.455791 l .8 2022-01-08 2022-01-08 Travel 1.2.840.1 1.2.827.934 9154 443367 Methodi 00:00:00 00:00:[address] 3.430.2.7 0.2.7.3.698 Ho spita .3.538008 084.8 l .8 2022-01-08 2022-01-08 Travel 1.2.840.1 1.2.578.632 5963 742852 Methodi 00:00:00 00:00:[address] 3.430.2.7 0.2.7.3.698 Ho spita .3.430808 084.8 l .8 2022-01-03 2022-01-03 Outpatient ANDUJAR, [facility] [id number] [place] 00:00:00 00:00:00 APOOR [address] 2022-01-02 2022-01-02 Travel 1.2.840.1 1.2.441.389 7882 844100 Methodi 00:00:00 00:00:[address] 3.430.2.7 0.2.7.3.698 Ho spita .3.466953 084.8 l .8 2022-01-02 2022-01-02 Travel 1.2.840.1 1.2.306.746 6510 336420 Methodi 00:00:00 00:00:[address] 3.430.2.7 0.2.7.3.698 Ho spita .3.221396 084.8 l .8 2022-01-01 2022-01-01 Telephone Andujar, 1.2.840.1 [id number] Methodi 00:00:00 00:00:[address] 3.430.2.7 Hospit a .3.520002 l .8 2022-01-01 2022-01-01 Travel 1.2.840.1 1.2.009.697 4775 274770 Methodi 00:00:00 00:00:[address] 3.430.2.7 0.2.7.3.698 Ho spita .3.886838 084.8 l .8 2022-01-01 2022-01-01 Telephone Andujar, 1.2.840.1 [id number] 2099 514783 Methodi 00:00:00 00:00:[address] 3.430.2.7 Hospit a .3.154728 l .8 2022-01-01 2022-01-01 Travel 1.2.840.1 1.2.711.453 9072 806609 Methodi 00:00:00 00:00:[address] 3.430.2.7 0.2.7.3.698 Ho spita .3.141013 084.8 l .8 2021-12-12 2021-12-12 Orders De Jesus, 1.2.840.1 [id number] 7498 Methodi 00:00:00 00:00:00 Only Shannon 60432.1.[address] 3.430.2.7 Hospit a .3.471004 l .8 2021-12-12 2021-12-12 Orders De Jesus, 1.2.840.1 [id number] 4227 Methodi 00:00:00 00:00:00 Only Shannon 03302.1.[address] 3.430.2.7 Hospit a .3.904712 l .8 2021-12-06 2021-12-06 Office Adrogue, 1.2.840.1 [id number] 27316 Methodi 08:30:00 09:12:54 Visit Salma 90099.1.[address] 3.430.2.7 Hospit a .3.657195 l .8 2021-12-06 2021-12-06 Office Adrogue, 1.2.840.1 [id number] 50822 Methodi 08:30:00 09:12:54 Visit Salma 72466.1.[address] 3.430.2.7 Hospit a .3.621029 l .8 2021-12-06 2021-12-06 Travel 1.2.840.1 1.2.352.645 7575 891633 Methodi 00:00:00 00:00:[address] 3.430.2.7 0.2.7.3.698 Ho spita .3.473377 084.8 l .8 2021-12-06 2021-12-06 Travel 1.2.840.1 1.2.299.609 5301 477243 Methodi 00:00:00 00:00:[address] 3.430.2.7 0.2.7.3.698 Ho spita .3.152501 084.8 l .8 2021-12-02 2021-12-02 Clinical Sepulveda, 1.2.840.1 [id number] 34638 14767 Methodi 13:15:00 13:48:18 Support Chaka Melgar 75768.1.[address] 3.430.2.7 Hospit a .3.294502 l .8 2021-12-02 2021-12-02 Clinical Sepulveda, 1.2.840.1 [id number] 07865 33254 Methodi 13:15:00 13:48:18 Support Chaka Melgar 77939.1.[address] 3.430.2.7 Hospit a .3.036175 l .8 2021-12-02 2021-12-02 Office Andujar, 1.2.840.1 [id number] 238113 8220 Methodi 09:10:00 09:50:39 Visit Apoor 85166.1.[address] 3.430.2.7 Hospit a .3.673102 l .8 2021-12-02 2021-12-02 Office Andujar, 1.2.840.1 [id number] [id number] 4782 Methodi 09:10:00 09:50:39 Visit Apoor 34548.1.[address] 3.430.2.7 Hospit a .3.278559 l .8 2021-12-02 2021-12-02 Orders Zakia, 1.2.840.1 [id number] 19726 Methodi 00:00:00 00:00:00 Only Lashae 68928.1.[address] 3.430.2.7 Hospit a .3.316421 l .8 2021-12-02 2021-12-02 Travel 1.2.840.1 1.2.391.575 9545 756296 Methodi 00:00:00 00:00:[address] 3.430.2.7 0.2.7.3.698 Ho spita .3.058104 084.8 l .8 2021-12-02 2021-12-02 Orders Zakia, 1.2.840.1 [id number] 88735 Methodi 00:00:00 00:00:00 Only Lashae 19738.1.[address] 3.430.2.7 Hospit a .3.990808 l .8 2021-12-02 2021-12-02 Travel 1.2.840.1 1.2.354.121 6386 889315 Methodi 00:00:00 00:00:[address] 3.430.2.7 0.2.7.3.698 Ho spita .3.284544 084.8 l .8 2021-11-14 2021-11-14 Orders Ty, 1.2.840.1 [id number] 2099 [id number] Methodi 00:00:00 00:00:00 Only [place] [address]144.1.[address] 3.430.2.7 Hospit a .3.335559 l .8 2021-11-14 2021-11-14 Orders Ty, 1.2.840.1 [id number] 2099 565557 Methodi 00:00:00 00:00:00 Only [place] [address]88.1.[address] 3.430.2.7 Hospit a .3.680042 l .8 2021-11-07 2021-11-07 Orders Ty, 1.2.840.1 [id number] 2099 977227 Methodi 00:00:00 00:00:00 Only [place] 44224.1.[address] 3.430.2.7 Hospit a .3.352471 l .8 2021-11-07 2021-11-07 Orders Yt, 1.2.840.1 [id number] 2099 056861 Methodi 00:00:00 00:00:00 Only [place] 61295.1.[address] 3.430.2.7 Hospit a .3.989216 l .8 2021-11-07 2021-11-07 Orders Ty, 1.2.840.1 [id number] 2099 704160 Methodi 00:00:00 00:00:00 Only [place] 24062.1.[address] 3.430.2.7 Hospit a .3.681105 l .8 2021-11-07 2021-11-07 Orders Ty, 1.2.840.1 [id number] 2099 124076 Methodi 00:00:00 00:00:00 Only [place] [address]45.1.[address] 3.430.2.7 Hospit a .3.172688 l .8 2021-11-07 2021-11-07 Orders Ty, 1.2.840.1 [id number] 2099569 Methodi 00:00:00 00:00:00 Only [place] [address]645.1.[address] 3.430.2.7 Hospit a .3.378727 l .8 2021-11-07 2021-11-07 Orders Ty, 1.2.840.1 [id number] 2099568 Methodi 00:00:00 00:00:00 Only [place] 44722.1.[address] 3.430.2.7 Hospit a .3.247382 l .8 2021-11-06 2021-11-06 Office Adrogue, 1.2.840.1 [id number] 72 Methodi 10:30:00 11:31:37 Visit Salma 17535.1.[address] 3.430.2.7 Hospit a .3.045539 l .8 2021-11-06 2021-11-06 Office Adrogue, 1.2.840.1 [id number] 88430 Methodi 10:30:00 11:31:37 Visit Salma 85742.1.[address] 3.430.2.7 Hospit a .3.250125 l .8 2021-11-06 2021-11-06 Travel 1.2.840.1 1.2.710.018 5199 067528 Methodi 00:00:00 00:00:[address] 3.430.2.7 0.2.7.3.698 Ho spita .3.953876 084.8 l .8 2021-11-06 2021-11-06 Travel 1.2.840.1 1.2.749.383 2343 525523 Methodi 00:00:00 00:00:[address] 3.430.2.7 0.2.7.3.698 Ho spita .3.769955 084.8 l .8 2021-11-05 2021-11-05 Orders Ty, 1.2.840.1 [id number] 2099 834588 Methodi 00:00:00 00:00:00 Only [place] [address]6217.1.[address] 3.430.2.7 Hospit a .3.731554 l .8 2021-11-05 2021-11-05 Orders Karson, 1.2.840.1 [id number] 2100 845380 Methodi 00:00:00 00:00:00 Only [place] 41889.1.[address] 3.430.2.7 Hospit a .3.262811 l .8 2021-10-28 2021-10-28 OFFICE STLMLC STLMLC [id number] Co mmon 00:00:00 00:00:00 VISIT EST [facility] it PT LEVEL 3 [facility] 2021-10-25 2021-10-25 Outpatient SUMI RODRIGUEZ MDA [facility] [id number] 08:12:07 09:20:22 JERE davidson 2021-10-17 2021-10-17 (TEL) STLMLC STLMLC [id number] Co mmon 00:00:00 00:00:00 [facility] 2021-10-11 2021-10-11 Office Rickey Hall 1.2.840.1 102 [id number] Methodi 13:10:00 14:00:34 Visit Tyrone Canchola 24117.1.[address] 3.430.2.7 Hospit a .3.683418 l .8 2021-10-11 2021-10-11 Office Rickey Hall 1.2.840.1 102 126311 [id number] Methodi 13:10:00 14:00:34 Visit Tyrone Canchola 39959.1.[address] 3.430.2.7 Hospit a .3.080795 l .8 2021-10-11 2021-10-11 Travel 1.2.840.1 1.2.994.935 5972 082022 Methodi 00:00:00 00:00:[address] 3.430.2.7 0.2.7.3.698 Ho spita .3.147986 084.8 l .8 2021-10-11 2021-10-11 Outpatient [facility] [id number] 717 [place] 00:00:00 00:00:[address] 2021-10-11 2021-10-11 Travel 1.2.840.1 1.2.263.270 0839 155977 Methodi 00:00:00 00:00:[address] 3.430.2.7 0.2.7.3.698 Ho spita .3.186294 084.8 l .8 2021-10-09 2021-10-09 Office Sepulveda, 1.2.840.1 [id number] 414729 7600 Methodi 10:15:00 10:27:01 Visit Chaka B. 11816.1.[address] 3.430.2.7 Hospit a .3.413088 l .8 2021-10-09 2021-10-09 Office Sepulveda, 1.2.840.1 [id number] 850613 5937 Methodi 10:15:00 10:27:01 Visit Chaka B. 22359.1.[address] 3.430.2.7 Hospit a .3.548366 l .8 2021-10-09 2021-10-09 Travel 1.2.840.1 1.2.196.253 4448 446140 Methodi 00:00:00 00:00:[address] 3.430.2.7 0.2.7.3.698 Ho spita .3.527254 084.8 l .8 2021-10-09 2021-10-09 Travel 1.2.840.1 1.2.617.995 1088 802552 Methodi 00:00:00 00:00:[address] 3.430.2.7 0.2.7.3.698 Ho spita .3.249698 084.8 l .8 2021-09-30 2021-09-30 (TEL) [facility]LMLC STLMLC [id number] Co mmon 00:00:00 00:00:00 [facility] 2021-09-26 2021-09-26 OFFICE STLMLC STLMLC [id number] Co mmon 00:00:00 00:00:00 VISIT Spirit ESTAB PT - CHI LEVEL 4 [facility] 2021-09-25 2021-09-25 [facility], 1.2.840.1 [id number] 07661 Methodi 06:19:28 23:59:00 Encounter Chaka Melgar 49534.1.[address] 3.430.2.7 Hospit a .3.063169 l .8 2021-09-25 2021-09-25 [facility], 1.2.840.1 [id number] 16966 Methodi 06:19:28 23:59:00 Encounter Chaka Melgar 32780.1.[address] 3.430.2.7 Hospit a .3.746750 l .8 2021-09-25 2021-09-25 Travel 1.2.840.1 1.2.437.257 1989 506079 Methodi 00:00:00 00:00:[address] 3.430.2.7 0.2.7.3.698 Ho spita .3.468233 084.8 l .8 2021-09-25 2021-09-25 Travel 1.2.840.1 1.2.438.237 6821 398642 Methodi 00:00:00 00:00:[address] 3.430.2.7 0.2.7.3.698 Ho spita .3.701496 084.8 l .8 2021-09-18 2021-09-18 [facility], 1.2.840.1 [id number] 71375 Methodi 10:38:44 23:59:00 Encounter Chaka Melgar 67602.1.[address] 3.430.2.7 Hospit a .3.797584 l .8 2021-09-18 2021-09-18 [facility], 1.2.840.1 [id number] 61635 58717 Methodi 10:38:44 23:59:00 Encounter Chaka Melgar 58409.1.[address] 3.430.2.7 Hospit a .3.179210 l .8 2021-09-18 2021-09-18 Office Sepulveda, 1.2.840.1 [id number] 743709 3871 Methodi 09:15:00 09:40:21 Visit Chaka Melgar 70714.1.[address] 3.430.2.7 Hospit a .3.534312 l .8 2021-09-18 2021-09-18 Office Sepulveda, 1.2.840.1 [id number] 189843 5748 Methodi 09:15:00 09:40:21 Visit Chaka Erickson50.1.[address] 3.430.2.7 Hospit a .3.158452 l .8 2021-09-18 2021-09-18 Malcolm Keys, 1.2.840.1 [id number] 681760 8045 Methodi 00:00:00 00:00:00 Only Any 49993.1.[address] 3.430.2.7 Hospit a .3.100917 l .8 2021-09-18 2021-09-18 Travel 1.2.840.1 1.2.722.829 6139 614516 Methodi 00:00:00 00:00:[address] 3.430.2.7 0.2.7.3.698 Ho spita .3.931930 084.8 l .8 2021-09-18 2021-09-18 Malcolm Keys, 1.2.840.1 [id number] 705562 8900 Methodi 00:00:00 00:00:00 Only Any 32046.1.[address] 3.430.2.7 Hospit a .3.772587 l .8 2021-09-18 2021-09-18 Travel 1.2.840.1 1.2.221.637 3689 175778 Methodi 00:00:00 00:00:[address] 3.430.2.7 0.2.7.3.698 Ho spita .3.758499 084.8 l .8 2021-09-16 2021-09-16 Travel 1.2.840.1 1.2.997.963 2166 643325 Methodi 00:00:00 00:00:[address] 3.430.2.7 0.2.7.3.698 Ho spita .3.871153 084.8 l .8 2021-09-16 2021-09-16 Telephone Chaves, 1.2.840.1 [id number] 2099 876483 Methodi 00:00:00 00:00:[address] 3.430.2.7 Hospit a .3.460260 l .8 2021-09-16 2021-09-16 Refill Jerri Kwok 1.2.840.1 [id number] 441 6078878 Methodi 00:00:00 00:00:[address] 3.430.2.7 Hospit a .3.266555 l .8 2021-09-16 2021-09-16 Travel 1.2.840.1 1.2.150.621 6832 011888 Methodi 00:00:00 00:00:[address] 3.430.2.7 0.2.7.3.698 Ho spita .3.592881 084.8 l .8 2021-09-16 2021-09-16 Telephone Chaves, 1.2.840.1 [id number] 2099 619519 Methodi 00:00:00 00:00:[address] 3.430.2.7 Hospit a .3.048984 l .8 2021-09-16 2021-09-16 Jerri Azul 1.2.840.1 [id number] 696 6353459 Methodi 00:00:00 00:00:[address] 3.430.2.7 Hospit a .3.102992 l .8 2021-09-11 2021-09-11 Telephone Suzette, 1.2.840.1 [id number] 2 [id number] Methodi 00:00:00 00:00:[address] 3.430.2.7 Hospit a .3.396061 l .8 2021-09-11 2021-09-11 Telephone Suzette, 1.2.840.1 [id number] 2 [id number] Methodi 00:00:00 00:00:[address] 3.430.2.7 Hospit a .3.905823 l .8 2021-09-02 2021-09-02 Office [place] 1.2.840.1 [id number] 32 Methodi 13:00:00 14:27:[address] 3.430.2.7 Hospit a .3.041784 l .8 2021-09-02 2021-09-02 Office Elvis [place] 1.2.840.1 [id number] 32 Methodi 13:00:00 14:27:[address] 3.430.2.7 Hospit a .3.808332 l .8 2021-09-02 2021-09-02 Travel 1.2.840.1 1.2.182.622 3247 780157 Methodi 00:00:00 00:00:[address] 3.430.2.7 0.2.7.3.698 Ho spita .3.120349 084.8 l .8 2021-09-02 2021-09-02 Travel 1.2.840.1 1.2.412.390 4863 501531 Methodi 00:00:00 00:00:[address] 3.430.2.7 0.2.7.3.698 Ho spita .3.970536 084.8 l .8 2021-08-28 2021-08-28 Hysham Anastacio, 1.2.840.1 [id number] 2099 168467 Methodi 00:00:00 00:00:[address] 3.430.2.7 Hospit a .3.499048 l .8 2021-08-28 2021-08-28 Hysham Anastacio, 1.2.840.1 [id number] 2100 175128 Methodi 00:00:00 00:00:[address] 3.430.2.7 Hospit a .3.028912 l .8 2021-08-26 2021-08-26 [facility] Rader 1.2.840.1 [id number] 21001 85393 Methodi 13:54:39 23:59:00 Encounter Munir 18519.1.1 [facility] H[facility] isabella .3.456706 l .8 2021-08-26 2021-08-26 [facility] Prasanth 1.2.840.1 [id number] Methodi 13:54:39 23:59:00 Encounter Munir 06865.1.1 571 [facility] Hosp isablela .3.935319 l .8 2021-08-26 2021-08-26 [facility] Padmini Elvis 1.2.840.1 [id number] Methodi 13:54:23 23:59:[address] 3.430.2.7 Hospit a .3.680157 l .8 2021-08-26 2021-08-26 [facility] Padmini Elvis 1.2.840.1 [id number] Methodi 13:54:23 23:59:[address] 3.430.2.7 Hospit a .3.161646 l .8 2021-08-26 2021-08-26 Travel 1.2.840.1 1.2.180.889 7344 701189 Methodi 00:00:00 00:00:[address] 3.430.2.7 0.2.7.3.698 Ho spita .3.619877 084.8 l .8 2021-08-26 2021-08-26 Travel 1.2.840.1 1.2.642.246 4164 727582 Methodi 00:00:00 00:00:[address] 3.430.2.7 0.2.7.3.698 Ho spita .3.922375 084.8 l .8 2021-08-15 2021-08-15 Travel 1.2.840.1 1.2.181.398 8230 539340 Methodi 00:00:00 00:00:[address] 3.430.2.7 0.2.7.3.698 Ho spita .3.325812 084.8 l .8 2021-08-15 2021-08-15 Travel 1.2.840.1 1.2.663.829 6406 390925 Methodi 00:00:00 00:00:[address] 3.430.2.7 0.2.7.3.698 Ho spita .3.959392 084.8 l .8 2021-07-30 2021-07-30 Orders Peralta, 1.2.840.1 [id number] 14497 90395 Methodi 00:00:00 00:00:00 Only Crysandria 44764.1.1 810 s t 3.430.2.7 Hospit a .3.085346 l .8 2021-07-29 2021-07-29 SUB ANNUAL STLMLC STLMLC [id number] Common 00:00:00 00:00:00 MCR Spirit WELLNESS - [facility] VISIT [facility] 2021-07-29 2021-07-29 (TEL) [facility] [id number] Co mmon 00:00:00 00:00:00 [facility] 2021-07-29 2021-07-29 Telephone Kathryn, 1.2.840.1 [id number] 416 [id number] Methodi 00:00:00 00:00:00 Crysandria 10881.1.1 747 s t 3.430.2.7 Hospit a .3.122778 l .8 2021-07-29 2021-07-29 Orders Kathryn, 1.2.840.1 [id number] 63720 39048 Methodi 00:00:00 00:00:00 Only Crysandria 95233.1.1 934 s t 3.430.2.7 Hospit a .3.409719 l .8 2021-07-26 2021-07-26 Travel 1.2.840.1 1.2.580.192 3320 638799 Methodi 00:00:00 00:00:[address] 3.430.2.7 0.2.7.3.698 Ho spita .3.661342 084.8 l .8 2021-07-26 2021-07-26 Telephone Jerri Kwok 1.2.840.1 [id number] 2 [id number] Methodi 00:00:00 00:00:[address] 3.430.2.7 Hospit a .3.587426 l .8 2021-07-24 2021-07-24 Office Prasanth, 1.2.840.1 [id number] 539779 5723 Methodi 15:15:00 16:02:34 Visit Munir 47374.1.[address] [facility] 3.430.2.7 Hosp isabella .3.629684 l .8 2021-07-24 2021-07-24 Outpatient PRASANTH [facility] [id number] 081 [place] 00:00:00 00:00:00 MUNIR Simpson [facility] 2021-07-24 2021-07-24 Travel 1.2.840.1 1.2.106.112 1070 308493 Methodi 00:00:00 00:00:[address] 3.430.2.7 0.2.7.3.698 Ho spita .3.835329 084.8 l .8 2021-07-24 2021-07-24 Outpatient BUBBA [facility] 887 [id number] [place] 00:00:00 00:00:00 MAYRAE, [address] 2021-07-24 2021-07-24 Outpatient PRASANTH [facility] [id number] 081 [place] 00:00:00 00:00:00 MUNIR Diane Method i st 2021-07-23 2021-07-23 Telephone Jerri Kwok 1.2.840.1 [id number] 2 [id number] Methodi 00:00:00 00:00:[address] 3.430.2.7 Hospit a .3.950289 l .8 2021-07-17 2021-07-17 Travel 1.2.840.1 1.2.684.579 8782 891069 Methodi 00:00:00 00:00:[address] 3.430.2.7 0.2.7.3.698 Ho spita .3.978435 084.8 l .8 2021-07-17 2021-07-17 Outpatient WICODEYRAMASIN [facility] 767 [id number] [place] 00:00:00 00:00:00 GHE, [address] 2021-07-02 2021-07-02 Refkwesi Chaves, 1.2.840.1 [id number] [id number] 7409 Methodi 00:00:00 00:00:[address] 3.430.2.7 Hospit a .3.294579 l .8 2021-06-28 2021-06-28 Office Bubba 1.2.840.1 [id number] 21 [id number] Methodi 09:15:00 10:23:37 Visit chelsey, 38737.1.[address] Sasrutha 3.430.2.7 Hospi ta Estela .3.404320 l .8 2021-06-28 2021-06-28 Travel 1.2.840.1 1.2.751.545 7654 129409 Methodi 00:00:00 00:00:[address] 3.430.2.7 0.2.7.3.698 Ho spita .3.565613 084.8 l .8 2021-06-26 2021-06-26 OFFICE STLMLC STLMLC [id number] Co mmon 00:00:00 00:00:00 VISIT [facility] ESTAB PT - CHI LEVEL 4 [facility] 2021-06-19 2021-06-19 Orders Kathryn, 1.2.840.1 [id number] 68059 79917 Methodi 00:00:00 00:00:00 Only Ramone 66741.1.1 090 s t 3.430.2.7 Hospit a .3.836368 l .8 2021-05-22 2021-05-22 (TEL) STLMLC STLMLC [id number] Co mmon 00:00:00 00:00:00 [facility] 2020-11-07 2020-11-07 OFFICE STLMLC STLMLC [id number] Co mmon 00:00:00 00:00:00 VISIT [facility] ESTAB PT - CHI LEVEL 4 [facility] 2020-11-02 2020-11-02 (TEL) STLMLC STLMLC [id number] Co mmon 00:00:00 00:00:00 [facility] 2020-10-25 2020-10-25 Outpatient SUMI RODRIGUEZ MDA MDA [id number] Tom BLANCAS 09:07:14 09:32:19 JERE davidson 2020-07-12 2020-07-12 Outpatient STLMLC STLMLC [id number] Common 00:00:00 00:00:00 [facility] 2020-07-05 2020-07-05 Outpatient STLMLC STLMLC [id number] Common 00:00:00 00:00:00 [facility] 2020-07-04 2020-07-04 Outpatient STLMLC STLMLC [id number] Common 00:00:00 00:00:00 [facility] 2020-07-03 2020-07-03 Outpatient STLMLC STLMLC [id number] Common 00:00:00 00:00:00 [facility] 2020-07-02 2020-07-02 Outpatient STLMLC STLMLC [id number] Common 00:00:00 00:00:00 [facility] 2020-05-03 2020-05-03 Outpatient STLMLC STLMLC [id number] Common 00:00:00 00:00:00 [facility] 2020-04-11 2020-04-11 Outpatient STLMLC STLMLC [id number] Common 00:00:00 00:00:00 [facility] 2020-03-05 2020-03-05 Outpatient STLMLC STLMLC [id number] Common 00:00:00 00:00:00 [facility] 2020-03-05 2020-03-05 Outpatient STLMLC STLMLC [id number] Common 00:00:00 00:00:00 [facility] 2020-02-20 2020-02-20 Outpatient STLMLC STLMLC [id number] Common 00:00:00 00:00:00 [facility] 2020-02-20 2020-02-20 Outpatient STLMLC STLMLC [id number] Common 00:00:00 00:00:00 [facility] 2019-12-12 2019-12-12 Outpatient STLMLC STLMLC [id number] Common 00:00:00 00:00:00 [facility] 2019-11-11 2019-11-11 Out[facility] [id number] Common 17:04:00 17:04:00 [facility] it [facility] 2019-11-02 2019-11-02 Outpatient [facility] [id number] Common 10:20:00 10:20:[address] [facility] 2019-10-06 2019-10-06 Outpatient SUMI RODRIGUEZ MDA VELIA [id number] 383 12:59:44 14:19:10 JERE davidson 2019-04-27 2019-04-27 Out[facility] [id number] Common 15:00:00 15:00:[address] [facility] 2019-04-08 2019-04-08 Outpatient [facility] [id number] Common 21:20:00 21:20:[address] [facility] 2018-10-27 2018-10-27 Outpatient [facility] [id number] Common 14:40:00 14:40:[address] [facility] 2018-08-19 2018-08-19 Outpatient [facility] [id number] Common 15:41:00 15:41:[address] [facility] 2018-06-24 2018-06-24 Outpatient [facility] [id number] Common 11:44:00 11:44:[address] [facility] 2018-06-24 2018-06-24 Outpatient [facility] [id number] Common 11:31:00 11:31:[address] [facility] 2017-11-12 2017-11-12 Outpatient [facility] [id number] Common 11:01:00 11:01:[address] [facility] 2017-11-11 2017-11-11 Outpatient [facility] [id number] Common 10:20:00 10:20:[address] [facility] 2017-11-10 2017-11-10 Outpatient [facility] [id number] Common 10:45:00 10:45:[address] [facility] 2017-11-02 2017-11-02 Outpatient [facility] [id number] Common 09:45:00 09:45:00 [facility] it Road [facility] Results Test Description Test Time Test Comments Results Result Comments Source ECG 12 lead 2022-01-29 03:26:12 Test Item Value Reference Range Interpretation Comme nts Ventricular rate (test code = 253) Atrial rate (test code = 255) OK interval (test code = 266) QRSD interval (test code = 260) QT interval (test code = 264) QTC interval (test code = 265) P axis 1 (test code = 267) QRS axis 1 (test code = 268) T wave axis (test code = 270) EKG impression (test code = 273) Normal sinus rhythm- [facility] [id number] 03:26:12 Test Item Value Reference Range Interpretation Comments Ventricular rate (test 76 code = 253) Atrial rate (test code = 76 255) OK interval (test code = 178 266) QRSD interval (test code 68 = 260) QT interval (test code = 436 264) QTC interval (test code = 490 265) P axis 1 (test code = -10 267) QRS axis 1 (test code = 4 268) T wave axis (test code = -8 270) EKG impression (test code Normal sinus = 273) rhythm-Electronicall y Signed By Nnamdi Andujar MD ([id number]) on 01/28/2022 9:26:09 PM [facility] [id number] 18:21:00 Test Item Value Reference Range Interpretation Comments Activated clotting time See_Comment H Oper ator Name: (test code = 5298) Keyona Ramos ID : [id number] [Autom ated message] The sy stem which generated this result transmit alfredo reference range : 96 - 152 sec. The reference range was not used to int erpret this result as normal/abnormal . Lab Interpretation (test Abnormal code = 81142-6) [facility] [id number] 18:21:00 Test Item Value Reference Range Interpretation Comments Activated clotting time 354 See_Comment H Oper ator Name: (test code = 5298) Keyona Ramos ID : [id number] [Autom ated message] The sy stem which generated this result transmit alfredo reference range : 96 - 152 sec. The reference range was not used to int erpret this result as normal/abnormal . Lab Interpretation (test Abnormal code = 22620-3) [facility] Pre/Post [id number] 20:36:40 Test Item Value Reference Range Interpretation [...] Hartley MD ([id number]) on 01/08/2022 3:36:36 PM [facility] Pre/Post [id number] 20:36:40 Test Item Value Reference Range Interpretation Comments Ventricular rate (test 72 code = 253) Atrial rate (test code 242 = 255) QRSD interval (test 78 code = 260) QT interval (test code 396 = 264) QTC interval (test 433 code = 265) QRS axis 1 (test code -10 = 268) T wave axis (test code 8 = 270) EKG impression (test Atrial flutter [...] Hartley MD ([id number]) on 01/08/2022 3:36:36 PM [facility] [id number] 19:13:00 Test Item Value Reference Range Interpretation Comments POC creatinine (test 1.4 mg/dl 0.7-1.2 H Operato r Name: Lyons code = 98712-9) Jia ce ID: [id number] Lab Interpretation Abnormal (test code = 31574-0) [facility] [id number] 19:13:00 Test Item Value Reference Range Interpretation Comments POC creatinine (test 1.4 mg/dl 0.7-1.2 H Operato r Name: Eloy code = 10435-2) Jia ce ID: [id number] Lab Interpretation Abnormal (test code = 74582-2) [facility], MIN 2 VIEWS, [id number] 21:31:00Reason for exam:->FB?FINAL REPORT CLINICAL HISTORY: Catfish bite, concern for foreign body COMPARISON: None. FINDINGS: 2 views of the left ring finger are submitted. There is no acute fracture, malalignment, destructive bony lesion or radiopaque foreign body. Signed: Leatha Clark MDReport Verified Sebastien e/Time: 05/27/2018 21:31:50 Reading Location: [address] Reading Room
--- NOTE | 2022-08-12 18:19 | RAD REPORT ---
EXAM DESCRIPTION: RAD - Chest Single View - 08/12/2022 6:13 pm CLINICAL HISTORY: COUGH Chest pain. COMPARISON: Chest Single View dated 03/07/2022; Chest Pa And Lat (2 Views) dated 10/28/2021; Chest Pa And Lat (2 Views) dated 07/03/2020 FINDINGS: Portable technique limits examination quality. Mild linear atelectasis is present both lung bases. Mild interstitial pulmonary edema. The heart is m oderately enlarged. No displaced fractures. IMPRESSION: Mild CHF.
[2022-08-12] MEDS ORDERED: NA CHLORIDE 0.9% 1,000 ML ONE (18:57)
[2022-08-12 19:02] LABS: Protime INR 1.13
[2022-08-12 19:04] LABS: Absolute Lymphocytes (CBC) 2.3 K/uL (0.7-4.9); Hematocrit 40.6 % (39.6-49.0); Lymphocytes % 28.8 % (15.3-44.8); MCV 89.3 fL (80-100); RBC Red Blood Cell Count 4.55 M/uL (4.33-5.43)
[2022-08-12 21:59] LABS: Albumin 3.4 g/dL (3.4-5.0); Bilirubin Direct 0.2 mg/dL (0-0.2); Bilirubin Indirect, Calculated 0.4 mg/dL (0.2-0.8); Bilirubin Total 0.6 mg/dL (0.2-1.0); Magnesium 2.2 mg/dL (1.6-2.4); Potassium 3.7 mEq/L (3.5-5.1); Protein, Total 7.4 g/dL (6.4-8.2); Troponin High Sensitivity 5.3 pg/mL (<58.9)
--- NOTE | 2022-08-12 23:19 | EDPHYS ---
Physician Documentation [facility] Name: Ke Edwards Jr Age: 77 yrs Sex: Male : 1945 Arrival Date: 08/12/2022 Time: 17:09 Bed 18 Private MD: ED Physician Marquez Vallejo HPI: 08/12 20:48 This 77 yrs old Male presents to ER via Ambulatory with complaints of keri Abnormal Lab Results. 20:48 TOLD BLOOD WORK ABNORMAL , POSSIBLE DEHYDRATION. Onset: The symptoms/episode keri began/occurred 1 day(s) ago. Severity of symptoms: in the emergency department the symptoms have resolved. The patient has experienced similar episodes in the past, a few times. Historical: - Allergies: 17:52 No Known Allergies; aa5 - PMHx: 17:52 Atrial fibrillation; Hypothyroidism; aa5 - PSHx: 17:52 Cardiac Ablation; rotator cuff right; Tonsillectomy; aa5 - Immunization history:: Adult Immunizations unknown. - Social history:: Smoking status: Patient reports the use of cigarette tobacco products, chewing tobacco. ROS: 20:50 Constitutional: Negative for fever, chills, and weight loss, Eyes: Negative for injury, keri pain, redness, and discharge, ENT: Negative for injury, pain, and discharge, Neck: Negative for injury, pain, and swelling, Cardiovascular: Negative for chest pain, palpitations, and edema, Respiratory: Negative for shortness of breath, cough, wheezing, and pleuritic chest pain, Abdomen/GI: Negative for abdominal pain, nausea, vomiting, diarrhea, and constipation, Back: Negative for injury and pain, : Negative for injury, bleeding, discharge, and swelling, MS/Extremity: Negative for injury and deformity, Skin: Negative for injury, rash, and discoloration, Neuro: Negative for headache, weakness, numbness, tingling, and seizure, Psych: Negative for depression, anxiety, suicide ideation, homicidal ideation, and hallucinations, Allergy/Immunology: Negative for hives, rash, and allergies, Endocrine: Negative for neck swelling, polydipsia, polyuria, polyphagia, and marked weight changes, Hematologic/Lymphatic: Negative for swollen nodes, abnormal bleeding, and unusual bruising. Exam: 20:50 Constitutional: This is a well developed, well nourished patient who is awake, alert, keri and in no acute distress. Head/Face: Normocephalic, atraumatic. Eyes: Pupils equal round and reactive to light, extra-ocular motions intact. Lids and lashes normal. Conjunctiva and sclera are non-icteric and not injected. Cornea within normal limits. Periorbital areas with no swelling, redness, or edema. ENT: Nares patent. No nasal discharge, no septal abnormalities noted. Tympanic membranes are normal and external auditory canals are clear. Oropharynx with no redness, swelling, or masses, exudates, or evidence of obstruction, uvula midline. Mucous membranes moist. Neck: Trachea midline, no thyromegaly or masses palpated, and no cervical lymphadenopathy. Supple, full range of motion without nuchal rigidity, or vertebral point tenderness. No Meningismus. Chest/axilla: Normal chest wall appearance and motion. Nontender with no deformity. No lesions are appreciated. Cardiovascular: Regular rate and rhythm with a normal S1 and S2. No gallops, murmurs, or rubs. Normal PMI, no JVD. No pulse deficits. Respiratory: Lungs have equal breath sounds bilaterally, clear to auscultation and percussion. No rales, rhonchi or wheezes noted. No increased work of breathing, no retractions or nasal flaring. Abdomen/GI: Soft, non-tender, with normal bowel sounds. No distension or tympany. No guarding or rebound. No evidence of tenderness throughout. Back: No spinal tenderness. No costovertebral tenderness. Full range of motion. Male : Normal genitalia with no discharge or lesions. Skin: Warm, dry with normal turgor. Normal color with no rashes, no lesions, and no evidence of cellulitis. MS/ Extremity: Pulses equal, no cyanosis. Neurovascular intact. Full, normal range of motion. Neuro: Awake and alert, GCS 15, oriented to person, place, time, and situation. Cranial nerves II-XII grossly intact. Motor strength 5/5 in all extremities. Sensory grossly intact. Cerebellar exam normal. Normal gait. Psych: Awake, alert, with orientation to person, place and time. Behavior, mood, and affect are within normal limits. Vital Signs: 17:51 BP 129 / 72; Pulse 86; Resp 18 S; Temp 97.9(TE); Pulse Ox 99% on R/A; Weight 104.33 kg aa5 (R); Height 5 ft. 10 in. (R); 21:00 BP 166 / 61; Pulse 76; Resp 17; Pulse Ox 100% on R/A; jj7 22:00 BP 141 / 72; Pulse 72; Resp 18; Pulse Ox 99% ; Pain 0/10; jj7 22:54 BP 103 / 76; Pulse 77; Resp 17; Pulse Ox 95% ; jj7 17:51 Body Mass Index 33.00 (104.33 kg, 177.8 cm) aa5 22:00 Pain Scale: Adult jj7 MDM: 17:56 Patient medically screened. [facility] 20:50 Data reviewed: vital signs, nurses notes, lab test result(s), EKG, radiologic studies, keri plain films. Consideration of Admission/Observation Escalation of care including admission/observation considered. I considered the following discharge prescriptions or medication management in the emergency department Medications were administered in the Emergency Department. See MAR. Test considered but Not performed: CT: NO CT AB/PELVIS. Care significantly affected by the following chronic conditions: HYPOTHYROID, AFIB. Counseling: I had a detailed discussion with the patient and/or guardian regarding: the historical points, exam findings, and any diagnostic results supporting the discharge/admit diagnosis, lab results, radiology results, the need for outpatient follow up, a family practitioner. 23:16 ED course: Patient care assumed from Dr. Lovelace at 8 PM. Labs were repeated patient sp4 is creatinine 1.5 no sign of kidney failure at this time patient states he is feeling better. 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 Advised to recheck kidney function in 2 weeks . . 08/12 17:56 Order name: Basic Metabolic Panel; Complete Time: 23:12 [facility] 08/12 17:56 Order name: CBC with Diff; Complete Time: 19:14 [facility] 08/12 17:56 Order name: LFT's; Complete Time: 23:12 [facility] 08/12 17:56 Order name: Magnesium; Complete Time: 23:12 [facility] 08/12 17:56 Order name: NT PRO-BNP; Complete Time: 23:12 [facility] 08/12 17:56 Order name: PT-INR; Complete Time: 19:14 [facility] 08/12 17:56 Order name: Troponin HS; Complete Time: 23:12 [facility] 08/12 17:56 Order name: XRAY Chest (1 view); Complete Time: 19:14 [facility] 08/12 17:56 Order name: Cardiac monitoring [facility] 08/12 17:56 Order name: EKG - Nurse/Tech [facility] 08/12 17:56 Order name: IV Saline Lock; Complete Time: 19:10 [facility] 08/12 17:56 Order name: Labs collected and sent; Complete Time: 19:10 [facility] 08/12 17:56 Order name: O2 Per Protocol [facility] 08/12 17:56 Order name: O2 Sat Monitoring [facility] 08/12 19:02 Order name: Labs - recollect needed: recollect light green top; Complete Time: 21:17 bd Administered Medications: 18:50 Drug: NS 0.9% IV 1000 ml Route: IV; Rate: 1 bolus; Site: left antecubital; aa5 20:37 Follow up: IV Status: Completed infusion jj7 Disposition Summary: 08/12/22 23:18 Discharge Ordered Location: Home sp4 Problem: new sp4 Symptoms: have improved sp4 Condition: Stable sp4 Diagnosis - Encounter for general adult medical examination without abnormal findings sp4 - Chronic renal insufficiency sp4 Followup: keri - With: Private Physician - When: 2 - 3 days - Reason: Recheck today's complaints, Continuance of care, Re-evaluation by your physician Discharge Instructions: - Discharge Summary Sheet sp4 - Chronic Kidney Disease, Adult, [id number] sp4 Signatures: Dispatcher [employer] EDKristie Ma Corey, MD MD cha Calderon, Audri RN RN aa5 Marquez Vallejo MD MD sp4 Kee Mesa RN jj7 Corrections: (The following items were deleted from the chart) 17:52 17:52 Social history: Smoking status: Patient denies any tobacco usage or history of. aa5 aa5
--- NOTE | 2022-08-12 23:19 | ER ---
Nurse's Notes [facility] Name: Ke Edwards Jr Age: 77 yrs Sex: Male : 1945 Arrival Date: 08/12/2022 Time: 17:09 Bed 18 Private MD: Diagnosis: Encounter for general adult medical examination without abnormal findings;Chronic renal insufficiency Presentation: 08/12 17:51 Chief complaint: Patient states: "I've been vomiting and my doctor said to come here aa5 because she said my blood work showed dehydration". Pt c/o generalized weakness, denies diarrhea. Coronavirus screen: vomiting. Ebola Screen: Patient denies travel to an Ebola-affected area in the 21 days before illness onset. Initial Sepsis Screen: Does the patient meet any 2 criteria? No. Patient's initial sepsis screen is negative. Does the patient have a suspected source of infection? No. Patient's initial sepsis screen is negative. Risk Assessment: Do you want to hurt yourself or someone else? Patient reports no desire to harm self or others. Onset of symptoms was August 2022. 17:51 Acuity: SINDHU 3 aa5 17:51 Method Of Arrival: Ambulatory aa5 Historical: - Allergies: 17:52 No Known Allergies; aa5 - PMHx: 17:52 Atrial fibrillation; Hypothyroidism; aa5 - PSHx: 17:52 Cardiac Ablation; rotator cuff right; Tonsillectomy; aa5 - Immunization history:: Adult Immunizations unknown. - Social history:: Smoking status: Patient reports the use of cigarette tobacco products, chewing tobacco. Screenin:30 [facility] ED Fall Risk Assessment (Adult) History of falling in the last 3 months, jj7 including since admission No falls in past 3 months (0 pts) Confusion or Disorientation No (0 pts) Intoxicated or Sedated No (0 pts) Impaired Gait No (0 pts) Mobility Assist Device Used No (0 pt) Altered Elimination No (0 pt) Score/Fall Risk Level 0 - 2 = Low Risk Oriented to surroundings, Maintained a safe environment. Abuse screen: Denies threats or abuse. Nutritional screening: No deficits noted. Tuberculosis screening: No symptoms or risk factors identified. Assessment: 20:30 Reassessment: ASSUMED CARE OF PT. PT SITTING IN BED. NO PAIN OR DISTRESS AT THIS TIME. jj7 NO N/V/D. PT STATES PAIN AND VOMITING HAS RESOLVED. VS STABLE. CALL WRIGHT IN REACH. General: Appears in no apparent distress. comfortable, Behavior is calm, cooperative, appropriate for age. Pain: Denies pain. GI: No deficits noted. Vital Signs: 17:51 BP 129 / 72; Pulse 86; Resp 18 S; Temp 97.9(TE); Pulse Ox 99% on R/A; Weight 104.33 kg aa5 (R); Height 5 ft. 10 in. (R); 21:00 BP 166 / 61; Pulse 76; Resp 17; Pulse Ox 100% on R/A; jj7 22:00 BP 141 / 72; Pulse 72; Resp 18; Pulse Ox 99% ; Pain 0/10; jj7 22:54 BP 103 / 76; Pulse 77; Resp 17; Pulse Ox 95% ; jj7 17:51 Body Mass Index 33.00 (104.33 kg, 177.8 cm) aa5 22:00 Pain Scale: Adult jj7 ED Course: 17:15 Patient arrived in ED. rg4 17:51 Arm band placed on. aa5 17:52 Triage completed. aa5 17:56 Shaggy Lovelace MD is Attending Physician. keri 18:15 XRAY Chest (1 view) In Process Unspecified. EDMS 18:47 Initial lab(s) drawn, by me, sent to lab. Inserted saline lock: 22 gauge in left tm3 antecubital area, using aseptic technique. 20:30 Patient has correct armband on for positive identification. Bed in low position. Call jj7 light in reach. Side rails up X 1. 20:30 No provider procedures requiring assistance completed. jj7 20:59 Kee Mesa, ANGEL is Primary Nurse. jj7 23:11 Attending Physician role handed off by Shaggy Lovelace MD sp4 23:11 Marquez Vallejo MD is Attending Physician. sp4 23:30 IV discontinued, intact, bleeding controlled, No redness/swelling at site. Pressure jj7 dressing applied. Administered Medications: 18:50 Drug: NS 0.9% IV 1000 ml Route: IV; Rate: 1 bolus; Site: left antecubital; aa5 20:37 Follow up: IV Status: Completed infusion jj7 Medication: 20:30 VIS not applicable for this client. jj7 Outcome: 23:18 Discharge ordered by sp4 23:30 Discharged to home ambulatory. jj7 23:30 Condition: improved 23:30 Discharge instructions given to patient, Instructed on discharge instructions, Demonstrated understanding of instructions. 23:41 Patient left the ED. jj7 Signatures: Dispatcher [employer] EDMS Quang Ruiz tm3 Shaggy Lovelace MD MD cha Calderon, Audri RN RN aa5 Jenniffer Moreland 4 Kee Mesa RN RN jj7 Marquez Vallejo MD MD sp4 Corrections: (The following items were deleted from the chart) 17:52 17:52 Social history: Smoking status: Patient denies any tobacco usage or history of. aa5 aa5 17:53 17:51 BP 129 / 72; Pulse 86bpm; Resp 18bpm; Spontaneous; Pulse Ox 99% RA; Temp 97.9F aa5 Temporal; aa5
[2022-08-13 02:12] VITALS: TEMP 97.9
[2022-08-13 02:18] VITALS: BP 103/76; O2SAT 95
== END 2022-08-12 23:41 | disposition home or self-care (01) ==
LOC: ER 08-12 17:09
DX: N18.9 Chronic kidney disease, unspecified (principal); I48.91 Unspecified atrial fibrillation; E03.9 Hypothyroidism, unspecified; F17.220 Nicotine dependence, chewing tobacco, uncomplicated
CPT/HCPCS: 96361; 85025; 80048; 36415; 83735; 85610; 80076; 84484; 83880; 71045; 96360; 99284; J7030

== ENCOUNTER 2024-04-16 11:16 | Emergency (ER) | payer OTHER ==
[2024-04-16] MEDS ORDERED: TRAMADOL HCL 50 MG TAB ONE (12:03)
--- NOTE | 2024-04-16 12:34 | RAD REPORT ---
EXAM: Hand Right 3 View HISTORY: PAIN COMPARISON: None FINDINGS: Obliquely oriented slightly displaced fracture at the fourth metacarpal. This is only well seen on th e oblique view. There is probably some foreshortening IMPRESSION: Fourth metacarpal mid diaphyseal fracture, only well seen on one view.
--- NOTE | 2024-04-16 12:37 | RAD REPORT ---
EXAMINATION: Elbow Left 3 View CLINICAL INDICATION: Male, 79 years old. PAIN COMPARISON: No prior exam. VIEWS: Three views FINDINGS: Suspected nondisplaced radial neck fracture. Elbow effusion is present. No dislocation. Other: n/a IMPRESSION: Elbow effusion with suspected radial neck fracture.
--- NOTE | 2024-04-16 12:53 | RAD REPORT ---
EXAMINATION: CT HEAD WITHOUT CONTRAST CLINICAL INDICATION: Male, 79 years old.TRAUMA TECHNIQUE: Axial CT images from the skull base to the vertex without intravenous contrast. Coronal an d sagittal reformatted images were created from the data set. One or more of the following dose reduction techniques were used: Automated exposure control, adjustment of the mA and/or kV according to patient size, and/or iterative reconstruction. Unless otherwise specified, incidental findings do not require dedicated imaging follow-up. [id number]. COMPARISON: No prior exam. FINDINGS: INTRACRANIAL: No acute intracranial hemorrhage. No hydrocephalus. No mass effect or midline shift. Pr esumably remote left phillips radiata and basal ganglia lacunar infarct. Mild chronic small vessel ischemic changes.Mild cerebral atrophy. VASCULATURE: No visualized abnormalities in the arteries or dural venous sinuses. SCALP/SKULL: No significant soft tissue or osseous abnormalities. SINUSES: The visualized paranasal sinuses and mastoid air cells are predominantly clear. IMPRESSION: No acute intracranial abnormality. 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
--- NOTE | 2024-04-16 12:55 | RAD REPORT ---
EXAMINATION: CT MAXILLOFACIAL WITHOUT CONTRAST CLINICAL INDICATION: Male, 79 years old. TRAUMA TECHNIQUE: Axial images were obtained through the facial bones and orbits without intravenous contras t. Sagittal and coronal reconstructions were created from the data. One or more of the following dose reduction techniques were used: Automated exposure control, adjustment of the mA and/or kV accor ding to patient size, and/or iterative reconstruction. Unless otherwise specified, incidental findings do not require dedicated imaging follow-up. [id number]. COMPARISON: No prior exam. FINDINGS: SOFT TISSUE: No significant abnormalities. BONES: No evidence of fracture, dislocation, or aggressive osseous lesions. No lesion of the visuali zed skull base or calvarium. ORBITS: The globes are intact. No intraorbital hemorrhage or mass. SINUSES: The paranasal sinuses and tympanomastoid cavities are predominantly clear. BRAIN: No acute abnormalities in the visualized intracranial structures. IMPRESSION: No facial fracture identified.
--- NOTE | 2024-04-16 13:23 | EDPHYS ---
Physician Documentation [facility] Name: Ke Edwards Jr Age: 79 yrs Sex: Male : 1945 Arrival Date: 04/16/2024 Time: 11:16 Bed 16 Private MD: ED Physician Monty Sharif HPI: 04/16 11:37 This 79 yrs old Male presents to ER via Unassigned with complaints of Fall Injury. sb4 11:37 Patient states that he tripped and fell on a curb in a parking lot this morning. States sb4 that he injured his left elbow and right hand. He is having some left sided facial pain and thinks he hit his face. He denies any LOC but is on xarelto. Complains mainly of pain in his left elbow, although has full ROM. Historical: - Allergies: 11:42 No Known Allergies; hb - Home Meds: 11:40 Amiodarone Oral [Active]; fenofibrate Oral [Active]; levothyroxine oral [Active]; hb Xarelto Oral [Active]; - PMHx: 11:40 Atrial fibrillation; Hypothyroidism; hb - PSHx: 11:40 Cardiac Ablation; rotator cuff right; Tonsillectomy; hb - Immunization history:: Adult Immunizations up to date. - Infectious Disease History:: Denies. - Social history:: Smoking status: Patient denies any tobacco usage or history of. ROS: 11:37 Constitutional: Negative for fever, chills, and weight loss, sb4 11:37 MS/extremity: Positive for injury or acute deformity, pain, of the right hand, 11:37 All other systems are negative, Exam: 11:37 Constitutional: This is a well developed, well nourished patient who is awake, alert, sb4 and in no acute distress. Head/Face: Normocephalic, atraumatic. Eyes: Extra-ocular motions intact. Periorbital areas with no swelling, redness, or edema. ENT: Mucous membranes moist. Cardiovascular: Regular rate and rhythm with a normal S1 and S2. Respiratory: No increased work of breathing, no retractions or nasal flaring. Abdomen/GI: Soft, non-tender, no distension. Skin: Warm, dry with normal turgor. Normal color with no rashes, no lesions, and no evidence of cellulitis. MS/ Extremity: Pulses equal, no cyanosis. Neurovascular intact. Full, normal range of motion. Neuro: Awake and alert, GCS 15, oriented to person, place, time, and situation. Motor strength 5/5 in all extremities. Sensory grossly intact. Vital Signs: 11:37 BP 152 / 80; Pulse 79; Resp 16; Temp 97.8; Pulse Ox 100% on R/A; Pain 6/10; hb 13:00 BP 138 / 78; Pulse 67; Resp 18; Pulse Ox 99% on R/A; ph 14:00 BP 132 / 68; Pulse 72; Resp 18; Temp 97.3; Pulse Ox 99% on R/A; ph 11:37 Pain Scale: Adult hb Lottie Coma Score: 12:00 Eye Response: spontaneous(4). Motor Response: obeys commands(6). Verbal Response: ph oriented(5). Total: 15. 13:00 Eye Response: spontaneous(4). Motor Response: obeys commands(6). Verbal Response: ph oriented(5). Total: 15. 14:00 Eye Response: spontaneous(4). Motor Response: obeys commands(6). Verbal Response: ph oriented(5). Total: 15. Trauma Score (Adult): 12:00 Eye Response: spontaneous(1); Verbal Response: oriented(1); Motor Response: obeys ph commands(2); Systolic BP: > 89 mm Hg(4); Respiratory Rate: 10 to 29 per min(4); Lottie Score: 15; Trauma Score: 12 13:00 Eye Response: spontaneous(1); Verbal Response: oriented(1); Motor Response: obeys ph commands(2); Systolic BP: > 89 mm Hg(4); Respiratory Rate: 10 to 29 per min(4); Lottie Score: 15; Trauma Score: 12 14:00 Eye Response: spontaneous(1); Verbal Response: oriented(1); Motor Response: obeys ph commands(2); Systolic BP: > 89 mm Hg(4); Respiratory Rate: 10 to 29 per min(4); Lottie Score: 15; Trauma Score: 12 MDM: 11:24 Medical Screening Exam initiated sb4 13:21 Data reviewed: vital signs, nurses notes, radiologic studies, and as a result, I will sb4 discharge patient. Counseling: I had a detailed discussion with the patient and/or guardian regarding the historical points, exam findings, and any diagnostic results supporting the discharge/admit diagnosis, radiology results, the need for outpatient follow up, a orthopedic surgeon, to return to the emergency department if symptoms worsen or persist or if there are any questions or concerns that arise at home. 04/16 11:36 Order name: Elbow Left 3 View XRAY; Complete Time: 12:42 sb4 04/16 11:36 Order name: Hand Right 3 View XRAY; Complete Time: 12:36 sb4 04/16 11:36 Order name: Head Brain Wo Cont CT; Complete Time: 12:59 sb4 04/16 11:36 Order name: Facial Bones W/O Con CT; Complete Time: 12:59 sb4 04/16 13:19 Order name: Posterior Elbow Splint; Complete Time: 14:12 sb4 04/16 13:19 Order name: Sling; Complete Time: 14:12 sb4 04/16 13:21 Order name: Wrist Splint; Complete Time: 14:12 sb4 Administered Medications: 12:07 Drug: traMADol PO 50 mg PO once Route: PO; ph 12:30 Follow up: Response: No adverse reaction ph Disposition Summary: 04/16/24 13:22 Discharge Ordered Notes: Location: Home sb4 Problem: new sb4 Symptoms: have improved sb4 Condition: Stable sb4 Diagnosis - Acute nondisplaced radial neck fracture with elbow effusion, left sb4 - Nondisplaced fourth metacarapl fracture, right sb4 Followup: sb4 - With: Evan Lozada MD - When: 2 - 3 days - Reason: Recheck today's complaints, Re-evaluation by your physician Discharge Instructions: - Discharge Summary Sheet sb4 - Metacarpal Fracture, [id number] sb4 - Radial Head Fracture, [id number] sb4 Forms: - Patient Portal Instructions sb4 - Leadership Thank You Letter sb4 Prescriptions: - Tramadol 50 mg Oral Tablet - take 1 tablet ORAL route every 8 hours as needed; 12 tablet; Refills: 0, sb4 Product Selection Permitted Signatures: Dispatcher EladioNatalia Estrada RN RN ph Malika Obrien RN RN Tracy Khan PA-C PA-C sb4
--- NOTE | 2024-04-16 13:23 | ER ---
Nurse's Notes [facility] Name: Ke Edwards Jr Age: 79 yrs Sex: Male : 1945 Arrival Date: 04/16/2024 Time: 11:16 Bed 16 Private MD: Diagnosis: Acute nondisplaced radial neck fracture with elbow effusion, left;Nondisplaced fourth metacarapl fracture, right Presentation: 04/16 11:37 Chief complaint: Tripped over speed bump landed on hands and knees and hit face, - LOC, hb now c/o pain in face, left elbow, and right wrist. Abrasions noted to bilateral knees, bilateral hands, and left elbow. Takes Xarelto. Coronavirus screen: At this time, the client does not indicate any symptoms associated with coronavirus-19. Ebola Screen: No symptoms or risks identified at this time. Initial Sepsis Screen: Does the patient meet any 2 criteria? No. Patient's initial sepsis screen is negative. Does the patient have a suspected source of infection? No. Patient's initial sepsis screen is negative. Risk Assessment: Do you want to hurt yourself or someone else? Patient reports no desire to harm self or others. Onset of symptoms was April 16, 2024. 11:37 Method Of Arrival: Ambulatory hb 11:37 Acuity: SINDHU 3 hb 12:00 Care prior to arrival: None. Mechanism of Injury: Fall from standing position. Trauma ph event details: Injury occurred: in a recreational area. Injury occurred: April 16, 2024. Trauma Activation: Not Applicable Physician: ED Physician; Name: ; Notified At: ; Arrived At: Physician: General Surgeon; Name: ; Notified At: ; Arrived At: Physician: Radiology; Name: ; Notified At: ; Arrived At: Physician: Respiratory; Name: ; Notified At: ; Arrived At: Physician: Lab; Name: ; Notified At: ; Arrived At: Historical: - Allergies: 11:42 No Known Allergies; hb - Home Meds: 11:40 Amiodarone Oral [Active]; fenofibrate Oral [Active]; levothyroxine oral [Active]; hb Xarelto Oral [Active]; - PMHx: 11:40 Atrial fibrillation; Hypothyroidism; hb - PSHx: 11:40 Cardiac Ablation; rotator cuff right; Tonsillectomy; hb - Immunization history:: Adult Immunizations up to date. - Infectious Disease History:: Denies. - Social history:: Smoking status: Patient denies any tobacco usage or history of. Screenin:00 [facility] ED Fall Risk Assessment (Adult) History of falling in the last 3 months, ph including since admission Yes- single mechanical fall (1 pt) Confusion or Disorientation No (0 pts) Intoxicated or Sedated No (0 pts) Impaired Gait No (0 pts) Mobility Assist Device Used No (0 pt) Altered Elimination No (0 pt) Score/Fall Risk Level 0 - 2 = Low Risk Oriented to surroundings, Maintained a safe environment, Hourly rounding (assess needs \T\ fall precautionary measures) done. Abuse screen: Denies threats or abuse. Denies injuries from another. Nutritional screening: No deficits noted. Tuberculosis screening: No symptoms or risk factors identified. Primary Survey: 12:00 Reassessment Breathing:. ph 12:00 NO uncontrolled hemorrhage observed. A: The client is awake and alert. The airway is ph patent. Breathing/Chest: Spontaneous respiratory effort, equal unlabored respirations, breath sounds clear bilaterally, regular pattern, symmetrical chest rise and fall. Circulation: No external hemorrhage present. Regular and strong central pulse, skin warm/dry/normal color. Disability Pupils are equal, round, reactive to light and accommodation. Client is alert. Exposure/Environment: Obvious injury(ies) are noted at this time: abrasions to paco hands and paco knees. 13:30 Reassessment Alertness and Airway: Awake and alert. The airway is patent. Breathing: ph Spontaneous respiratory effort, equal unlabored respirations, breath sounds clear bilaterally, regular pattern with symmetrical chest rise and fall. Circulation: No external hemorrhage noted. Regular and strong central pulse, skin warm/dry/normal color. Disability: Pupils Pupils are equal, round, reactive to light and accomodation. Alert. Assessment: 12:00 General: Appears in no apparent distress. comfortable, well groomed, Behavior is calm, ph cooperative, appropriate for age. Pain: Complains of pain in right hand and left elbow. Neuro: Level of Consciousness is awake, alert, obeys commands, Oriented to person, place, time, situation. Cardiovascular: Capillary refill < 3 seconds in bilateral fingers Patient's skin is warm and dry. Respiratory: Airway is patent Respiratory effort is even, unlabored, Respiratory pattern is regular, symmetrical. Derm: Skin is pink, warm \T\ dry. Musculoskeletal: Circulation, motion, and sensation intact. Injury Description: Abrasion sustained to right hand, left hand and right knee and left knee. Vital Signs: 11:37 BP 152 / 80; Pulse 79; Resp 16; Temp 97.8; Pulse Ox 100% on R/A; Pain 6/10; hb 13:00 BP 138 / 78; Pulse 67; Resp 18; Pulse Ox 99% on R/A; ph 14:00 BP 132 / 68; Pulse 72; Resp 18; Temp 97.3; Pulse Ox 99% on R/A; ph 11:37 Pain Scale: Adult hb Lottie Coma Score: 12:00 Eye Response: spontaneous(4). Motor Response: obeys commands(6). Verbal Response: ph oriented(5). Total: 15. 13:00 Eye Response: spontaneous(4). Motor Response: obeys commands(6). Verbal Response: ph oriented(5). Total: 15. 14:00 Eye Response: spontaneous(4). Motor Response: obeys commands(6). Verbal Response: ph oriented(5). Total: 15. Trauma Score (Adult): 12:00 Eye Response: spontaneous(1); Verbal Response: oriented(1); Motor Response: obeys ph commands(2); Systolic BP: > 89 mm Hg(4); Respiratory Rate: 10 to 29 per min(4); Armona Score: 15; Trauma Score: 12 13:00 Eye Response: spontaneous(1); Verbal Response: oriented(1); Motor Response: obeys ph commands(2); Systolic BP: > 89 mm Hg(4); Respiratory Rate: 10 to 29 per min(4); Armona Score: 15; Trauma Score: 12 14:00 Eye Response: spontaneous(1); Verbal Response: oriented(1); Motor Response: obeys ph commands(2); Systolic BP: > 89 mm Hg(4); Respiratory Rate: 10 to 29 per min(4); Armona Score: 15; Trauma Score: 12 ED Course: 11:18 Patient arrived in ED. mr 11:21 Tracy Sinclair PA-C is [facility]. sb4 11:21 Monty Sharif MD is Attending Physician. sb4 11:35 Natalia Hikcey, RN is Primary Nurse. ph 11:40 Triage completed. hb 11:43 Arm band placed on. hb 12:00 Patient has correct armband on for positive identification. Placed in gown. Bed in low ph position. Call light in reach. Side rails up X 1. Pulse ox on. NIBP on. Door closed. Noise minimized. Warm blanket given. Pillow given. 12:00 Patient maintains SpO2 saturation greater than 95% on room air. Thermoregulation: warm ph blanket given to patient. 12:15 Elbow Left 3 View XRAY In Process Unspecified. EDMS 12:15 Hand Right 3 View XRAY In Process Unspecified. EDMS 12:38 Head Brain Wo Cont CT In Process Unspecified. EDMS 12:39 Facial Bones W/O Con CT In Process Unspecified. EDMS 13:21 Evan Lozada MD is Referral Physician. sb4 14:12 Orthoglass splint: posterior long arm splint applied to the left arm. Velcro wrist ph splint applied to right wrist. 14:13 No provider procedures requiring assistance completed. Patient did not have IV access ph during this emergency room visit. Administered Medications: 12:07 Drug: traMADol PO 50 mg PO once Route: PO; ph 12:30 Follow up: Response: No adverse reaction ph Medication: 14:00 VIS not applicable for this client. ph Intake: 14:00 PO: 0ml; Total: 0ml. ph Output: 14:00 Urine: 0ml; Total: 0ml. ph Outcome: 13:22 Discharge ordered by MD. sb4 14:13 Discharged to home ambulatory, with family, ph 14:13 Condition: good 14:13 Discharge instructions given to patient, family, Instructed on discharge instructions, follow up and referral plans. medication usage, Demonstrated understanding of instructions, follow-up care, medications, Prescriptions given X 1, 14:13 Patient left the ED. ph 14:13 Patient's length of stay was not longer than 2 hours. ph Signatures: Dispatcher [employer] [facility] Kyle Emilee, Reg Reg mr Natalia Hickey, RN RN ph Malika Obrien RN RN Tracy Khan PA-C PANader sb4 Corrections: (The following items were deleted from the chart) 15:15 15:13 Reassessment Breathing: ph ph
[2024-04-16 14:17] VITALS: BP 152/80; TEMP 97.8; O2SAT 100
== END 2024-04-16 14:13 | disposition home or self-care (01) ==
LOC: ER 11:16
PROC: 2W3BX1Z Immobilization of Left Upper Arm using Splint (ICD-10-PCS; principal; 2024-04-16)
DX: S52.135A Nondisplaced fracture of neck of left radius, initial encounter for closed fracture (principal); S62.394A Other fracture of fourth metacarpal bone, right hand, initial encounter for closed fracture; M25.422 Effusion, left elbow; I48.91 Unspecified atrial fibrillation; E03.9 Hypothyroidism, unspecified; Z79.01 Long term (current) use of anticoagulants; W01.198A Fall on same level from slipping, tripping and stumbling with subsequent striking against other object, initial encounter
CPT/HCPCS: 70450; 70486; 76377; 99284

== ENCOUNTER 2024-04-22 05:53 | Day surgery (SDC) | payer OTHER ==
[2024-04-20 09:31] LABS: Absolute Eosinophils 0.2 K/uL (0-0.5); Absolute Lymphocytes (CBC) 1.7 K/uL (0.7-4.9); Absolute Monocytes 0.4 K/uL (0.1-1.3); Absolute Neutrophil 4.4 K/uL (1.8-8.0); Basophils % 0.6 % (0-1.3); Eosinophils % 2.4 % (0-4.4); Lymphocytes % 25.8 % (15.3-44.8); MCH 30.2 pg (27.0-35.0); MCHC 33.4 g/dL (32.0-36.0); MCV 90.4 fL (80-100); MPV 8.3 fL (7.6-11.3); Monocytes % 5.6 % (3.3-12.3); Neutrophils % 65.6 % (41.7-73.7); Platelets 192 thou/uL (152-406); RBC Red Blood Cell Count 4.31 M/uL (4.33-5.43)
[2024-04-20 09:35] LABS: PT Prothrombin Time 18.1 SECONDS (9.4-12.5); PTT, Activated Partial Thromb 36.9 SECONDS (24.3-36.9); Protime INR 1.73
[2024-04-20 09:50] LABS: Anion Gap 8.9 mEq/L (5.0-15.0); Potassium 3.9 mEq/L (3.5-5.1)
--- NOTE | 2024-04-20 11:43 | EKG ---
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
[2024-04-22] MEDS: Ringers Lactate 1,000 ML IV ONE (06:30)
[2024-04-22] MEDS ORDERED: propofoL 200 MG/20 ML VIAL IV ONE (06:34)
[2024-04-22] MEDS ORDERED: LIDOCAINE 2% MPF 5 ML VIAL ONE (06:34)
[2024-04-22] MEDS ORDERED: ONDANSETRON 4 MG/2 ML VIAL ONE (06:34)
[2024-04-22] MEDS ORDERED: FENTANYL CITR 100 MCG/2 ML ONE (06:35)
[2024-04-22] MEDS: CEFAZOLIN SODIUM 1 GM/VIAL ONE (07:05)
[2024-04-22] MEDS: HYDROMORPHONE HCL 1 MG/ML INJ ONE (08:04)
--- NOTE | 2024-04-22 08:16 | OP ---
Date of Procedure: 04/22/2024 Surgeon: Eber Devi MD Preoperative Diagnosis: Right fourth metacarpal fracture. Postoperative Diagnosis: Right fourth metacarpal fracture. Procedure: Right fourth metacarpal closed reduction and percutaneous pin fixation. Estimated Blood Loss: Less than 3 cc. Complications: There were no complications. Specimens: No pathology specimens sent. Indications For Operation: Mr. Edwards is a 79-year-old gentleman, who unfortunately fell injuring his left elbow consistent with a radial neck fracture. This is being treated nonoperatively with sl ing and early motion. He also unfortunately injured his right hand and has a fracture of the fourth metacarpal. 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 Risks, benefits, and alternatives of different methods of treating this have been discussed with him at this time. Pl an was for operative closed reduction with percutaneous pin fixation. He states he understands thing s as presented and wishes to proceed and risks, benefits, and alternatives are discussed. Description Of Procedure: The patient was taken to the operating room and placed in the supine posit ion. General anesthesia was easily obtained by the Anesthesia staff. Following this, a well-padded tourniquet was placed on the superior right arm; however, it was not used throughout the case. Right upper extremity was then prepped and draped in usual sterile fashion for the procedure. Following t his, a combination of traction and rotation was used to reduce the finger in line with the remaining fingers. The C-arm was brought in. X-ray was taken, which demonstrates acceptable closed reduction. After this, the radial-sided pin was selected first and a 3.5 pin was placed in the collateral rece ss and it was then placed down the shaft across the fracture site. It was checked for proper rotatio n and the final ulnar pin was then placed in exact same fashion. On the ulnar side, both pins appear ed to be well positioned on biplanar C-arm radiography and physical examination of the finger demonst rates no further malrotation. The pins were then bent and cut, and bulky sterile dressing was placed followed by generous padding as a plaster ulnar gutter splint was applied. After this, the patient was awakened and taken to the recovery room in good condition. There were no complications. /KAREL Voice ID: [id number] Report ID: [id number]
[2024-04-22] MEDS: FENTANYL CITR 100 MCG/2 ML ONE (08:20)
[2024-04-22] MEDS ORDERED: HYDROCODONE/APAP 7.5/325 MG TAB ONE (09:01)
[2024-04-22] MEDS: HYDROCODONE/APAP 7.5/325 MG TAB PO ONE (09:05)
[2024-04-22 09:19] VITALS: BP 145/82; TEMP 97.6; O2SAT 99
--- NOTE | 2024-04-22 14:49 | RAD REPORT ---
Exam: Fluoroscopy less than one hour CLINICAL HISTORY: right metacarpal pinning FINDINGS: Fluoroscopy time 0.6 minutes. Due to technical malfunction no images obtained. Please refer to Dr. Devi report for findings
== END 2024-04-22 09:26 | disposition home or self-care (01) ==
LOC: OR 05:53
PROVIDERS: ATTEND Orthopaedic Surgery
PROC: 0PSP34Z Reposition Right Metacarpal with Internal Fixation Device, Percutaneous Approach (ICD-10-PCS; principal; 2024-04-22 07:00)
DX: S62.201A Unspecified fracture of first metacarpal bone, right hand, initial encounter for closed fracture (principal)
CPT/HCPCS: 93005; 85025; 80048; 36415; 85610; 85730; 26615; J2704; J2003; J3010 ×2; J1171; J2405; J7120; J0690; 76000